=== PATIENT | male | born 1940 | race African-American/Black ===

== ENCOUNTER 2017-04-22 15:12 | Inpatient (IN) | payer MEDICARE, MEDICAID ==
[2017-04-22] MEDS ORDERED: NORMAL SALINE 1000 ML 1,000 ML IV ONE ×2 (15:20→17:56)
[2017-04-22] MEDS ORDERED: NORMAL SALINE 1000 ML 1,000 ML IV PRN (15:20)
[2017-04-22] MEDS ORDERED: ONDANSETRON HCL INJ/PF 4 MG/2 ML SDV IV ONE (15:21)
--- NOTE | 2017-04-22 15:27 | ER Document Report ---
ED General - General Stated Complaint: BLOOD PRESSURE PROBLEMS Time Seen by Provider: 04/22/17 15:18 - HPI Patient complains to provider of: Nausea vomiting weakness dizziness Notes: Patient coming in today from a long-term after having nausea vomiting apparently for 1 week according to the patient epigastric pain feeling better after vomiting. Called to the long-term due to frequent falls and dizziness. Patient was found to have a systolic of 50. Upon evaluation patient is a alert and oriented patient states history of smoking and diabetes denies any other past medical history. Patient denies any drug abuse. Patient denies any pain at this time. - Related Data Allergies/Adverse Reactions: No Known Allergies Allergy (Verified 04/22/17 15:40) Past Medical History - Social History Smoking Status: Current Every Day Smoker Family History: Reviewed & Not Pertinent Review of Systems - Review of Systems Constitutional: No symptoms reported EENT: No symptoms reported Cardiovascular: No symptoms reported Respiratory: No symptoms reported Gastrointestinal: Nausea, Vomiting Genitourinary: No symptoms reported Male Genitourinary: No symptoms reported Musculoskeletal: No symptoms reported Skin: No symptoms reported Hematologic/Lymphatic: No symptoms reported Neurological/Psychological: No symptoms reported Physical Exam - Vital signs Vitals: Pulse Resp BP Pulse Ox 84 16 95/51 L 98 04/22/17 15:20 04/22/17 15:20 04/22/17 15:20 04/22/17 15:20 Interpretation: Hypotensive - General General appearance: Appears well, Alert - HEENT Head: Normocephalic, Atraumatic Eyes: Normal Conjunctiva: Normal Cornea: Normal Pupils: No: PERRL - Right pupil somewhat pinpoint however is reactive to light left pupil is enlarged and irregular patient states history of eye surgery in the past. - Respiratory Respiratory status: No respiratory distress Chest status: Nontender Breath sounds: Normal Chest palpation: Normal - Cardiovascular Rhythm: Regular Heart sounds: Normal auscultation Murmur: No - Abdominal Inspection: Normal Distension: No distension Bowel sounds: Normal Tenderness: Nontender Organomegaly: No organomegaly - Back Back: Normal, Nontender - Extremities General upper extremity: Normal inspection, Nontender, Normal color, Normal ROM , Normal temperature General lower extremity: Normal inspection, Nontender, Normal color, Normal ROM , Normal temperature, Normal weight bearing. No: Arturo's sign - Neurological Neuro grossly intact: Yes Cognition: Normal Orientation: AAOx4 [place] Coma Scale Eye Opening: Spontaneous [place] Coma Scale Verbal: Oriented [place] Coma Scale Motor: Obeys Commands [place] Coma Scale Total: 15 Speech: Normal Motor strength normal: LUE, RUE, LLE, RLE Sensory: Normal - Psychological Associated symptoms: Normal affect, Normal mood - Skin Skin Temperature: Warm Skin Moisture: Dry Skin Color: Normal Course - Re-evaluation Re-evalutation: 04/22/17 15:26 Concern about underlying sepsis we will start workup will give multiple fluid boluses reevaluate afterwards. EKG shows sinus rhythm IL 164 QRS duration of 82 QT QTc corrected [address] segment elevations concerning for STEMI. Patient does have diffuse T-wave inversions throughout his EKG no old EKG for comparison patient currently at this time is chest pain-free. 04/22/17 15:27 04/22/17 23:11 Patient with hyponatremia more likely from dehydration and urinary tract infection. Concern for Sears possible early sepsis. Patient blood pressure doing much better after fluid resuscitation. Patient was admitted to the hospital service for further evaluation. - Vital Signs Vital signs: Temp Pulse Resp BP Pulse Ox 98.2 F 94 16 136/61 H 98 04/22/17 22:00 04/22/17 22:00 04/22/17 22:00 04/22/17 22:00 04/22/17 22:00 - Laboratory Result Diagrams: 04/22/17 15:26 04/22/17 21:40 Laboratory results interpreted by me: 04/22/17 04/22/17 04/22/17 15:26 15:26 15:26 WBC 11.2 H RBC 4.00 L Hgb 10.7 L Hct 32.1 L MCH 26.8 L RDW 18.5 H Lymphocytes % 7.2 L Monocytes % 17.1 H Absolute Neutrophils 8.4 H Absolute Monocytes 1.9 H Sodium 121.4 L Potassium 3.1 L Chloride 86 L BUN 36 H Creatinine 1.47 H Est GFR ( Amer) 57 L Est GFR (Non-Af Amer) 47 L Serum Osmolality 261 L Albumin 3.1 L Urine Glucose (UA) Ur Leukocyte Esterase 04/22/17 16:40 WBC RBC Hgb Hct MCH RDW Lymphocytes % Monocytes % Absolute Neutrophils Absolute Monocytes Sodium Potassium Chloride BUN Creatinine Est GFR ( Amer) Est GFR (Non-Af Amer) Serum Osmolality Albumin Urine Glucose (UA) 50 H Ur Leukocyte Esterase LARGE H Critical Care Note - Critical Care Note Total time excluding time spent on procedures (mins): 35 Comments: Multiple evaluation for hypertension sirs Discharge - Discharge Clinical Impression: SIRS (systemic inflammatory response syndrome) UTI (urinary tract infection) Qualifiers: Urinary tract infection type: acute cystitis Hematuria presence: without hematuria Qualified Code(s): N30.00 - Acute cystitis without hematuria N&V (nausea and vomiting) Qualifiers: Vomiting type: unspecified Vomiting Intractability: non-intractable Qualified Code(s): R11.2 - Nausea with vomiting, unspecified Condition: Good Disposition: ADMITTED INPATIENT Admitting Provider: [facility] Admitted: [facility]
[2017-04-22 15:39] LABS: ABSOLUTE LYMPHOCYTES (AUTO) 0.8 10^3/uL (0.5-4.7); ABSOLUTE MONOCYTES (AUTO) 1.9 10^3/uL (0.1-1.4); ABSOLUTE NEUT (AUTO) 8.4 10^3/uL (1.7-8.2); BASOPHILS % (AUTO) 0.4 % (0-2); EOSINOPHILS % (AUTO) 0.1 % (0-6); HEMATOCRIT 32.1 % (37.9-51.0); HEMOGLOBIN 10.7 g/dL (13.5-17.0); LYMPHOCYTES % (AUTO) 7.2 % (13-45); MEAN CORPUSCULAR HEMOGLOBIN 26.8 pg (27.0-33.4); MEAN CORPUSCULAR HGB CONC 33.5 g/dL (32.0-36.0); MEAN CORPUSCULAR VOLUME 80 fl (80-97); MONOCYTES % (AUTO) 17.1 % (3-13); RED CELL DISTRIBUTION WIDTH 18.5 % (11.5-14.0); SEGMENTED NEUTROPHILS % (AUTO) 75.2 % (42-78); WHITE BLOOD COUNT 11.2 10^3/uL (4.0-10.5)
[2017-04-22 16:01] LABS: ALANINE AMINOTRANSFERASE 35 U/L (21-72); ALBUMIN 3.1 g/dL (3.5-5.0); ALKALINE PHOSPHATASE 89 U/L (38-126); ANION GAP 5 (5-19); ASPARTATE AMINO TRANSFERASE 25 U/L (17-59); BILIRUBIN,DIRECT 0.4 mg/dL (0.0-0.4); BILIRUBIN,TOTAL 0.5 mg/dL (0.2-1.3); BLOOD UREA NITROGEN 36 mg/dL (7-20); CALCIUM 8.6 mg/dL (8.4-10.2); CARBON DIOXIDE 30 mmol/L (22-30); CHLORIDE 86 mmol/L (98-107); CREATININE RESULT 1.47 mg/dL (0.52-1.25); GLUCOSE 96 mg/dL (75-110); POTASSIUM 3.1 mmol/L (3.6-5.0); SODIUM 121.4 mmol/L (137-145); TOTAL PROTEIN 6.5 g/dL (6.3-8.2)
--- NOTE | 2017-04-22 16:35 | RADIOLOGY REPORT (SQ) ---
EXAM DESCRIPTION: CHEST SINGLE VIEW COMPLETED DATE/TIME: 04/22/2017 4:26 pm REASON FOR STUDY: sepsis COMPARISON: 07/20/2009 EXAM PARAMETERS: NUMBER OF VIEWS: One view. TECHNIQUE: Single frontal radiographic view of the chest acquired. RADIATION DOSE: NA LIMITATIONS: None. FINDINGS: LUNGS AND PLEURA: Stable 5 mm right upper lobe calcified granuloma. No acute infiltrates. No pleural effusion. No pneumothorax. MEDIASTINUM AND HILAR STRUCTURES: No masses. Contour normal. HEART AND VASCULAR STRUCTURES: Heart normal in size. Normal vasculature. BONES: No acute findings. HARDWARE: None in the chest. OTHER: No other significant finding. IMPRESSION: No acute changes TECHNICAL DOCUMENTATION: JOB ID: [id number]
[2017-04-22 17:09] LABS: VENOUS BLOOD BASE EXCESS -2.3 mmol/L; VENOUS BLOOD HCO3 23.6 mmol/L (20-32); VENOUS BLOOD PCO2 44.9 mmHg (35-63); VENOUS BLOOD PH 7.34 (7.30-7.42)
[2017-04-22 17:10] LABS: PROTHROMBIN TIME 13.8 SEC (11.4-15.4)
[2017-04-22 17:29] LABS: APPEARANCE,URINE SLIGHTLY-CLOUDY; BILIRUBIN,URINE NEGATIVE (NEGATIVE); GLUCOSE, URINE 50 mg/dL (NEGATIVE); KETONES,URINE NEGATIVE (NEGATIVE); LEUKOCYTE ESTERASE,URINE LARGE (NEGATIVE); NITRITE,URINE NEGATIVE (NEGATIVE); PROTEIN,URINE NEGATIVE (NEGATIVE); URINE SPECIFIC GRAVITY 1.008; UROBILINOGEN,URINE NEGATIVE mg/dL (<2.0)
[2017-04-22] MEDS ORDERED: CEFTRIAXONE 1 GM/D5W RTU 1 GM/50 ML RTUPB IV ONE (17:44)
[2017-04-22] MEDS ORDERED: ONDANSETRON HCL INJ/PF 4 MG/2 ML SDV IV PRN (17:52)
[2017-04-22] MEDS ORDERED: ACETAMINOPHEN 325 MG TABLET PO PRN (17:52)
[2017-04-22] MEDS ORDERED: IPRATROPIUM/ALBUTEROL 0.5-2.5 MG/3 ML AMPUL NEB PRN (17:52)
[2017-04-22] MEDS ORDERED: NORMAL SALINE 1000 ML 2,000 ML IV ONE (17:56)
[2017-04-22] MEDS ORDERED: POTASSIUM CHLORIDE 10 MEQ TABLET.SA PO ONE (17:57)
[2017-04-22] MEDS ORDERED: GLUCAGON,HUMAN RECOMB 1 MG INJ IM PRN (18:18)
[2017-04-22] MEDS ORDERED: DEXTROSE 40% GEL 15 GM TUBE PO PRN ×2 (18:18)
[2017-04-22] MEDS ORDERED: DEXTROSE 50%-WATER 25 GM/50 ML DISP.SYRIN IV PRN ×2 (18:18)
[2017-04-22] MEDS ORDERED: ZINC OXIDE 20% OINTMENT 28.35 GM TP PRN (18:19)
--- NOTE | 2017-04-22 18:38 | PDOC H&P ---
History of Present Illness Admission Date/PCP: 04/22/17 Skyla Reyes History of Present Illness: TATIANNA FARLEY is a 76 year old male with a past medical history significant for BPH, hypertension, hyperlipidemia, diabetes mellitus, COPD, and possibly schizophrenia who presents to the hospital from a skilled nursing. At the time I see patient, he is unaccompanied and can tell me very little about why he is there other than that he feels poorly. He apparently had nausea and vomiting for 1 week prior to admission and when EMS arrived patient had a systolic blood pressure in the 50s. Patient currently has a systolic blood pressure of greater than 110. He is awake alert and conversational and oriented to person place and situation. However he is unable to tell me very little about himself or his medical history or conditions. Much of this is inferred from the ER note and from his medication list. Medications are currently being reconciled but include finasteride, alfuzosin, benztropine, hydrochlorothiazide, losartan, Zofran, atorvastatin, Levemir, NovoLog, Spiriva, timop, and thiothixene. Past Medical History Past Medical History: BPH, hypertension, hyperlipidemia, diabetes mellitus, COPD, and possibly schizophrenia Past Surgical History Past Surgical History: Reports: Other - eye surgery Social History Smoking Status: Current Every Day Smoker Frequency of Alcohol Use: None Hx Recreational Drug Use: No - Advance Directive Resuscitation Status: Full Code Surrogate healthcare decision maker:: sister, unable to name Family History Family History: Other - unable to obtain Parental Family History Reviewed: No - unable due to condition Children Family History Reviewed: NA Sibling(s) Family History Reviewed.: No Medication/Allergy Allergies/Adverse Reactions: No Known Allergies Allergy (Verified 04/22/17 15:40) Review of Systems ROS unobtainable: Due to mental status Constitutional: PRESENT: fatigue, weakness. ABSENT: chills, fever(s), headache( s), weight gain, weight loss Eyes: ABSENT: visual disturbances Ears: ABSENT: hearing changes Cardiovascular: ABSENT: chest pain, dyspnea on exertion, edema, orthropnea, palpitations Respiratory: ABSENT: cough, hemoptysis Gastrointestinal: PRESENT: diarrhea, nausea, vomiting. ABSENT: abdominal pain, constipation, hematemesis, hematochezia, melena Genitourinary: PRESENT: difficulty urinating. ABSENT: dysuria, hematuria Musculoskeletal: ABSENT: joint swelling Integumentary: ABSENT: rash, wounds Neurological: PRESENT: frequent falls. ABSENT: abnormal gait, abnormal speech, confusion, dizziness, focal weakness, syncope Psychiatric: ABSENT: anxiety, depression, homidical ideation, suicidal ideation Endocrine: ABSENT: cold intolerance, heat intolerance, polydipsia, polyuria Hematologic/Lymphatic: ABSENT: easy bleeding, easy bruising Physical Exam Vital Signs: Temp Pulse Resp BP Pulse Ox 97.6 F 84 24 H 95/51 L 98 04/22/17 15:40 04/22/17 15:20 04/22/17 15:20 04/22/17 15:20 04/22/17 15:20 Intake & Output 04/21/17 04/22/17 04/23/17 06:59 06:59 06:59 Weight 63.503 kg General appearance: PRESENT: mild distress - ill appearing, well-developed, well -nourished Head exam: PRESENT: atraumatic, normocephalic Eye exam: PRESENT: conjunctiva pink, EOMI. ABSENT: PERRLA - reports prior eye surgery, scleral icterus Ear exam: PRESENT: normal external ear exam Mouth exam: PRESENT: dry mucosa, tongue midline Teeth exam: PRESENT: edentulous Neck exam: ABSENT: JVD, lymphadenopathy, thyromegaly, tracheal deviation Respiratory exam: PRESENT: prolonged expiratory phas, symmetrical, unlabored. ABSENT: accessory muscle use, crackles, rales, rhonchi, stridor, tachypnea, wheezes Cardiovascular exam: PRESENT: RRR, +S1, +S2. ABSENT: diastolic murmur, gallop, rubs, systolic murmur Pulses: PRESENT: +1 pedal pulses bilateral Vascular exam: PRESENT: normal capillary refill GI/Abdominal exam: PRESENT: normal bowel sounds, soft. ABSENT: distended, firm , guarding, mass, Duncan's sign, organolmegaly, rebound, rigid, tenderness Rectal exam: PRESENT: deferred Extremities exam: PRESENT: full ROM. ABSENT: calf tenderness, clubbing, pedal edema Neurological exam: PRESENT: alert, awake, oriented to person, oriented to place , oriented to situation, CN II-XII grossly intact. ABSENT: oriented to time, motor sensory deficit, normal gait Psychiatric exam: PRESENT: appropriate affect, normal mood, other - suspect baseline cognitive dysfunction. ABSENT: homicidal ideation, suicidal ideation Skin exam: PRESENT: dry, intact, rash - bilateral leg venous stasis, hyperpigmentation, warm. ABSENT: cyanosis Results Laboratory Results: 04/22/17 15:26 04/22/17 15:26 04/22/17 04/22/17 04/22/17 15:26 15:26 15:26 WBC 11.2 H RBC 4.00 L Hgb 10.7 L Hct 32.1 L MCV 80 MCH 26.8 L MCHC 33.5 RDW 18.5 H Plt Count 186 Seg Neutrophils % 75.2 Lymphocytes % 7.2 L Monocytes % 17.1 H Eosinophils % 0.1 Basophils % 0.4 Absolute Neutrophils 8.4 H Absolute Lymphocytes 0.8 Absolute Monocytes 1.9 H Absolute Eosinophils 0.0 Absolute Basophils 0.0 VBG pH VBG pCO2 VBG HCO3 VBG Base Excess Sodium 121.4 L Potassium 3.1 L Chloride 86 L Carbon Dioxide 30 Anion Gap 5 BUN 36 H Creatinine 1.47 H Est GFR ( Amer) 57 L Est GFR (Non-Af Amer) 47 L Glucose 96 Lactic Acid Calcium 8.6 Magnesium 2.0 Total Bilirubin 0.5 AST 25 ALT 35 Alkaline Phosphatase 89 Total Protein 6.5 Albumin 3.1 L Lipase 23.3 Urine Color Urine Appearance Urine pH Ur Specific [place] Urine Protein Urine Glucose (UA) Urine Ketones Urine Blood Urine Nitrite Ur Leukocyte Esterase Urine WBC (Auto) Urine RBC (Auto) 04/22/17 04/22/17 04/22/17 16:15 16:40 16:55 WBC RBC Hgb Hct MCV MCH MCHC RDW Plt Count Seg Neutrophils % Lymphocytes % Monocytes % Eosinophils % Basophils % Absolute Neutrophils Absolute Lymphocytes Absolute Monocytes Absolute Eosinophils Absolute Basophils VBG pH 7.34 VBG pCO2 44.9 VBG HCO3 23.6 VBG Base Excess -2.3 Sodium Potassium Chloride Carbon Dioxide Anion Gap BUN Creatinine Est GFR ( Amer) Est GFR (Non-Af Amer) Glucose Lactic Acid 1.2 Calcium Magnesium Total Bilirubin AST ALT Alkaline Phosphatase Total Protein Albumin Lipase Urine Color YELLOW Urine Appearance SLIGHTLY-CLOUDY Urine pH 6.0 Ur Specific [place] 1.008 Urine Protein NEGATIVE Urine Glucose (UA) 50 H Urine Ketones NEGATIVE Urine Blood NEGATIVE Urine Nitrite NEGATIVE Ur Leukocyte Esterase LARGE H Urine WBC (Auto) 83 Urine RBC (Auto) 1 04/22/17 15:26 Troponin I 0.027 Impressions: Chest X-Ray 04/22/17 15:20 IMPRESSION: No acute changes Assessment & Plan - Diagnosis (1) UTI (urinary tract infection) Qualifiers: Urinary tract infection type: acute cystitis Hematuria presence: without hematuria Qualified Code(s): N30.00 - Acute cystitis without hematuria Is this a current diagnosis for this admission?: Yes Plan: Patient on Rocephin pending culture. (2) Sepsis Qualifiers: Sepsis type: sepsis due to unspecified organism Qualified Code(s): A41.9 - Sepsis, unspecified organism Is this a current diagnosis for this admission?: Yes Plan: Likely gram negative due to UTI Patient on Rocephin Cultures collected (3) COPD (chronic obstructive pulmonary disease) Qualifiers: COPD type: unspecified COPD Qualified Code(s): J44.9 - Chronic obstructive pulmonary disease, unspecified Is this a current diagnosis for this admission?: Yes Plan: Place on prn duonebs spiriva encourage cessation of smoking (4) IDDM (insulin dependent diabetes mellitus) Is this a current diagnosis for this admission?: Yes Plan: Check HgbA1c Place on sliding scale and carb controlled diet (5) Hypertension Qualifiers: Hypertension type: unspecified Qualified Code(s): I10 - Essential (primary ) hypertension Is this a current diagnosis for this admission?: Yes Plan: Patient is normally hypertensive and is currently hypotensive. Hold antihypertensives (6) Hyponatremia Is this a current diagnosis for this admission?: Yes Plan: Likely secondary to intravascular volume depletion. Send urine and serum osmolality. Send spot urine sodium. This condition was likely exacerbated by patient's use of Hydrochlorothiazide. Will stop this. (7) Hypokalemia Is this a current diagnosis for this admission?: Yes Plan: Magnesium is normal. Will replete him IV. Continue to monitor on telemetry with concern for arrhythmia. (8) Tobacco abuse Is this a current diagnosis for this admission?: Yes Plan: Encourage cessation offer nicotine replacement (9) BPH (benign prostatic hyperplasia) Qualifiers: Lower urinary tract symptom presence: unspecified whether lower urinary tract symptoms present Qualified Code(s): N40.0 - Benign prostatic hyperplasia without lower urinary tract symptoms Is this a current diagnosis for this admission?: Yes Plan: Continue finasteride and alfuzosin as tolerated (10) N&V (nausea and vomiting) Qualifiers: Vomiting type: unspecified Vomiting Intractability: non-intractable Qualified Code(s): R11.2 - Nausea with vomiting, unspecified Is this a current diagnosis for this admission?: Yes Plan: Concern with history of diabetes mellitus for gastroparesis. Likely however secondary to underlying UTI. Place on Zofran. Consider CAT scan if patient is not appreciably improved or if he does decline. (11) Anemia Qualifiers: Anemia type: unspecified type Qualified Code(s): D64.9 - Anemia, unspecified Is this a current diagnosis for this admission?: Yes Plan: Recommend outpatient evaluation for this including colonoscopy. - Time Time Spent: 30 to 50 Minutes Medications reviewed and adjusted accordingly: Yes Anticipated discharge: Other - Inpatient Certification Based on my medical assessment, after consideration of the patient's comorbidities, presenting symptoms, or acuity I expect that the services needed warrant INPATIENT care.: Yes I certify that my determination is in accordance with my understanding of Medicare's requirements for reasonable and necessary INPATIENT services [42 CFR 412.3e].: Yes Medical Necessity: Need For IV Fluids, Need For Continuous Telemetry Monitoring , Need for IV Antibiotics, Risk of Complication if Not Cared For in Hospital Post Hospital Care: D/C [employer] Documentation
[2017-04-22 19:55] LABS: CREATINE KINASE MB 1.97 ng/mL (<4.55); TROPONIN I 0.027 ng/mL
[2017-04-22 22:04] LABS: BLOOD UREA NITROGEN 29 mg/dL (7-20); CALCIUM 8.5 mg/dL (8.4-10.2); CARBON DIOXIDE 23 mmol/L (22-30); CHLORIDE 91 mmol/L (98-107); CREATININE RESULT 1.09 mg/dL (0.52-1.25); GLUCOSE 219 mg/dL (75-110); POTASSIUM 3.9 mmol/L (3.6-5.0)
[2017-04-22 22:11] LABS: ANION GAP 6 (5-19)
[2017-04-22] MEDS ORDERED: SODIUM BICARBONATE 650 MG TABLET PO ONE (22:25)
[2017-04-22] MEDS: DOCUSATE SODIUM 100 MG CAPSULE PO SCH (23:08)
[2017-04-23] MEDS ORDERED: INSULIN DETEMIR 100 UNIT/ML 3 ML PEN SUBCUT ONE (00:15)
[2017-04-23] MEDS: INSULIN DETEMIR 100 UNIT/ML 3 ML PEN SUBCUT SCH ×2 (00:39→22:01)
[2017-04-23] MEDS: INSULIN LISPRO 100 UNIT/ML 3 ML VIAL SUBCUT PRN ×4 (00:39→22:01)
[2017-04-23 01:25] LABS: CREATINE KINASE MB 2.28 ng/mL (<4.55); TROPONIN I 0.041 ng/mL
[2017-04-23 07:19] LABS: ABSOLUTE LYMPHOCYTES (AUTO) 0.7 10^3/uL (0.5-4.7); ABSOLUTE MONOCYTES (AUTO) 1.6 10^3/uL (0.1-1.4); ABSOLUTE NEUT (AUTO) 6.9 10^3/uL (1.7-8.2); BASOPHILS % (AUTO) 0.5 % (0-2); EOSINOPHILS % (AUTO) 0.2 % (0-6); HEMATOCRIT 31.3 % (37.9-51.0); HEMOGLOBIN 10.4 g/dL (13.5-17.0); HGB HCT DIFFERENCE -0.1; LYMPHOCYTES % (AUTO) 7.4 % (13-45); MEAN CORPUSCULAR HEMOGLOBIN 26.7 pg (27.0-33.4); MEAN CORPUSCULAR HGB CONC 33.2 g/dL (32.0-36.0); MEAN CORPUSCULAR VOLUME 81 fl (80-97); MONOCYTES % (AUTO) 17.6 % (3-13); RED BLOOD COUNT 3.88 10^6/uL (4.35-5.55); RED CELL DISTRIBUTION WIDTH 18.9 % (11.5-14.0); SEGMENTED NEUTROPHILS % (AUTO) 74.3 % (42-78); WHITE BLOOD COUNT 9.2 10^3/uL (4.0-10.5)
--- NOTE | 2017-04-23 07:24 | EKG REPORT ---
SEVERITY:- ABNORMAL ECG - SINUS RHYTHM SERGIO, CONSIDER BIATRIAL ABNORMALITIES PROBABLE LVH WITH SECONDARY REPOL ABNRM BORDERLINE PROLONGED QT INTERVAL : Confirmed by: Troy Novak MD 23-Apr-2017 07:23:34
[2017-04-23] MEDS ORDERED: FUROSEMIDE INJ/PF 20 MG/2 ML SDV IV ONE (07:25)
[2017-04-23 07:34] LABS: ANION GAP 6 (5-19); BLOOD UREA NITROGEN 21 mg/dL (7-20); CALCIUM 8.6 mg/dL (8.4-10.2); CARBON DIOXIDE 24 mmol/L (22-30); CHLORIDE 95 mmol/L (98-107); CREATINE KINASE 141 U/L (55-170); CREATININE RESULT 1.03 mg/dL (0.52-1.25); GLUCOSE 83 mg/dL (75-110); MAGNESIUM 1.9 mg/dL (1.6-2.3); POTASSIUM 3.6 mmol/L (3.6-5.0); SODIUM 125.4 mmol/L (137-145)
[2017-04-23 07:43] LABS: CREATINE KINASE MB 1.92 ng/mL (<4.55); TROPONIN I 0.045 ng/mL
[2017-04-23] MEDS ORDERED: SODIUM CHLORIDE 1 GM TABLET PO SCH (10:00)
[2017-04-23] MEDS ORDERED: CEFTRIAXONE 1 GM/D5W RTU 1 GM/50 ML RTUPB IV SCH (10:00)
[2017-04-23] MEDS: ENOXAPARIN SODIUM INJ 40 MG/0.4 ML DISP.SYRIN SUBCUT SCH (12:08)
[2017-04-23] MEDS: DOCUSATE SODIUM 100 MG CAPSULE PO SCH ×2 (12:08→17:23)
[2017-04-23] MEDS: NICOTINE 21 MG/24 HR PATCH.TD24 TD PRN (12:47)
--- NOTE | 2017-04-23 13:32 | PDOC PROGRESS REPORT ---
Subjective Progress Note for:: 04/23/17 Subjective:: Patient examined with RN and Aide at bedside. Patient reports that he is feeling better today. No new complaints. Tmax in the last 24 hours 99.9. Patient denies chest pain, shortness of breath, abdominal pain, nausea, vomiting , chills, diarrhea, constipation, headache, new onset weakness. Physical Exam Vital Signs: Temp Pulse Resp BP Pulse Ox 99.9 F 93 16 129/58 H 95 04/23/17 04:06 04/23/17 04:06 04/23/17 04:06 04/23/17 04:06 04/23/17 04:06 Intake & Output 04/22/17 04/23/17 04/24/17 06:59 06:59 06:59 Intake Total 1000 Output Total 200 Balance 800 Weight 61.5 kg Exam: General: Awake alert and oriented x3, no acute respiratory distress HEENT: AT/NC, anisocoria-chronic, left eye irregular pupil, EOMI, oropharynx is moist, pink, no scleral icterus, no conjunctival injection Neck: No JVD, trachea midline Chest: Prolonged expiratory phase, clear to auscultation bilaterally, no wheezes , rhonchi, or rales CV: Regular rate and rhythm, normal S1 and S2, no murmur, rub, or gallop Abdomen: Soft, nontender to palpation, nondistended, active bowel sounds; no rebound, rigidity, or guarding : Normal male external genitalia, circumcised Extremities: No cyanosis or edema, +clubbing Neuro: Cranial nerves II through XII are grossly intact without focal deficits; awake alert and oriented x3 Psych: flat mood and affect, rhythmic tongue movements, rhythmic kicking when turned on side Skin: flat healed patches on medial lower extremities, gastrocnemius healed wound on left leg Results Laboratory Results: 04/23/17 07:00 04/22/17 04/23/17 21:40 07:00 WBC 9.2 RBC 3.88 L Hgb 10.4 L Hct 31.3 L MCV 81 MCH 26.7 L MCHC 33.2 RDW 18.9 H Plt Count 205 Seg Neutrophils % 74.3 Lymphocytes % 7.4 L Monocytes % 17.6 H Eosinophils % 0.2 Basophils % 0.5 Absolute Neutrophils 6.9 Absolute Lymphocytes 0.7 Absolute Monocytes 1.6 H Absolute Eosinophils 0.0 Absolute Basophils 0.0 Sodium 120.0 L* Potassium 3.9 Chloride 91 L Carbon Dioxide 23 Anion Gap 6 BUN 29 H Creatinine 1.09 Est GFR ( Amer) > 60 Est GFR (Non-Af Amer) > 60 Glucose 219 H Calcium 8.5 04/22/17 04/22/17 04/23/17 19:02 19:02 00:55 Creatine Kinase 79 138 CK-MB (CK-2) 1.97 Troponin I 0.027 04/23/17 00:55 Creatine Kinase CK-MB (CK-2) 2.28 Troponin I 0.041 Impressions: Chest X-Ray 04/22/17 15:20 IMPRESSION: No acute changes Assessment & Plan - Diagnosis (1) UTI (urinary tract infection) Qualifiers: Urinary tract infection type: acute cystitis Hematuria presence: without hematuria Qualified Code(s): N30.00 - Acute cystitis without hematuria Is this a current diagnosis for this admission?: Yes Plan: Growing gram negative rods Patient on Rocephin pending culture. (2) Sepsis Qualifiers: Sepsis type: sepsis due to unspecified organism Qualified Code(s): A41.9 - Sepsis, unspecified organism Is this a current diagnosis for this admission?: Yes Plan: Gram negative due to UTI Patient on Rocephin Cultures collected (3) COPD (chronic obstructive pulmonary disease) Qualifiers: COPD type: unspecified COPD Qualified Code(s): J44.9 - Chronic obstructive pulmonary disease, unspecified Is this a current diagnosis for this admission?: Yes Plan: Place on prn duonebs spiriva encourage cessation of smoking (4) IDDM (insulin dependent diabetes mellitus) Is this a current diagnosis for this admission?: Yes Plan: Check HgbA1c Place on sliding scale and carb controlled diet 04/23/17 04/23/17 07:00 12:40 Glucose 83 POC Glucose 198 H (5) Hypertension Qualifiers: Hypertension type: unspecified Qualified Code(s): I10 - Essential (primary ) hypertension Is this a current diagnosis for this admission?: Yes Plan: Patient is normally hypertensive and is currently hypotensive. Hold antihypertensives until patient sepsis improved (6) Hyponatremia Is this a current diagnosis for this admission?: Yes Plan: Hypoosmolar, hyponatremia is multifactorial secondary to intravascular volume depletion worsened by HCTZ and possible renal losses. Consider repeat urine sodium if no improvement in Na. Continue NS @100mL/hr and repeat patient sodium serially. 04/22/17 04/22/17 04/22/17 15:26 15:26 16:40 Sodium 121.4 L Serum Osmolality 261 L Ur Specific [place] 1.008 Urine Osmolality Urine Sodium 04/22/17 04/22/17 04/23/17 16:40 16:40 07:00 Sodium 125.4 L Serum Osmolality Ur Specific [place] Urine Osmolality 332 Urine Sodium 62 (7) Hypokalemia Is this a current diagnosis for this admission?: Yes Plan: Improved. Continue to monitor on telemetry with concern for arrhythmia. (8) Tobacco abuse Is this a current diagnosis for this admission?: Yes Plan: Encourage cessation offer nicotine replacement (9) BPH (benign prostatic hyperplasia) Qualifiers: Lower urinary tract symptom presence: unspecified whether lower urinary tract symptoms present Qualified Code(s): N40.0 - Benign prostatic hyperplasia without lower urinary tract symptoms Is this a current diagnosis for this admission?: Yes Plan: Continue finasteride and alfuzosin as tolerated (10) N&V (nausea and vomiting) Qualifiers: Vomiting type: unspecified Vomiting Intractability: non-intractable Qualified Code(s): R11.2 - Nausea with vomiting, unspecified Is this a current diagnosis for this admission?: Yes Plan: Improved. Likely 2/2 to underlying sepsis, concern for symptomatic hyponatremia. (11) Anemia Qualifiers: Anemia type: unspecified type Qualified Code(s): D64.9 - Anemia, unspecified Is this a current diagnosis for this admission?: Yes Plan: Recommend outpatient evaluation for this including colonoscopy. - Time Time Spent with patient: 25-34 minutes Medications reviewed and adjusted accordingly: Yes
[2017-04-23] MEDS: NORMAL SALINE 1000 ML 1,000 ML IV PRN ×2 (14:39→17:21)
[2017-04-23 15:04] LABS: BLOOD UREA NITROGEN 18 mg/dL (7-20); CALCIUM 8.5 mg/dL (8.4-10.2); CHLORIDE 91 mmol/L (98-107); CREATININE RESULT 1.01 mg/dL (0.52-1.25); GLUCOSE 197 mg/dL (75-110); POTASSIUM 3.7 mmol/L (3.6-5.0)
[2017-04-23 15:05] LABS: ANION GAP 6 (5-19); CARBON DIOXIDE 25 mmol/L (22-30); SODIUM 121.7 mmol/L (137-145)
--- NOTE | 2017-04-23 17:09 | EKG REPORT ---
SEVERITY:- ABNORMAL ECG - SINUS RHYTHM PROBABLE LVH WITH SECONDARY REPOL ABNRM ABNORMAL T, PROBABLE ISCHEMIA, ANT-LAT LEADS : Confirmed by: Troy Novak MD 23-Apr-2017 17:08:26
[2017-04-24 04:20] LABS: ABSOLUTE LYMPHOCYTES (AUTO) 1.1 10^3/uL (0.5-4.7); ABSOLUTE MONOCYTES (AUTO) 1.6 10^3/uL (0.1-1.4); ABSOLUTE NEUT (AUTO) 7.8 10^3/uL (1.7-8.2); BASOPHILS % (AUTO) 0.3 % (0-2); EOSINOPHILS % (AUTO) 0.3 % (0-6); HEMATOCRIT 29.5 % (37.9-51.0); HEMOGLOBIN 9.9 g/dL (13.5-17.0); HGB HCT DIFFERENCE 0.2; LYMPHOCYTES % (AUTO) 10.3 % (13-45); MEAN CORPUSCULAR HEMOGLOBIN 26.9 pg (27.0-33.4); MEAN CORPUSCULAR HGB CONC 33.6 g/dL (32.0-36.0); MEAN CORPUSCULAR VOLUME 80 fl (80-97); MONOCYTES % (AUTO) 15.6 % (3-13); RED BLOOD COUNT 3.69 10^6/uL (4.35-5.55); RED CELL DISTRIBUTION WIDTH 18.6 % (11.5-14.0); SEGMENTED NEUTROPHILS % (AUTO) 73.5 % (42-78); WHITE BLOOD COUNT 10.5 10^3/uL (4.0-10.5)
[2017-04-24 04:36] LABS: BLOOD UREA NITROGEN 13 mg/dL (7-20); CALCIUM 8.5 mg/dL (8.4-10.2); CARBON DIOXIDE 25 mmol/L (22-30); CHLORIDE 100 mmol/L (98-107); CREATININE RESULT 0.89 mg/dL (0.52-1.25); GLUCOSE 54 mg/dL (75-110); POTASSIUM 3.5 mmol/L (3.6-5.0)
[2017-04-24 04:46] LABS: SODIUM 128.5 mmol/L (137-145)
[2017-04-24 04:49] LABS: ANION GAP 4 (5-19)
[2017-04-24] MEDS ORDERED: TRAMADOL HCL 50 MG TABLET PO PRN (10:03)
[2017-04-24] MEDS: ENOXAPARIN SODIUM INJ 40 MG/0.4 ML DISP.SYRIN SUBCUT SCH (10:05)
[2017-04-24] MEDS: DOCUSATE SODIUM 100 MG CAPSULE PO SCH ×2 (10:06→17:58)
[2017-04-24] MEDS ORDERED: ONDANSETRON HCL INJ/PF 4 MG/2 ML SDV IV PRN (10:30)
[2017-04-24] MEDS ORDERED: CIPROFLOXACIN HCL 500 MG TABLET PO ONE (11:15)
[2017-04-24] MEDS ORDERED: POTASSIUM CHLORIDE 10 MEQ TABLET.SA PO ONE (11:15)
--- NOTE | 2017-04-24 13:01 | PDOC PROGRESS REPORT ---
Subjective Progress Note for:: 04/24/17 Subjective:: Patient examined with sister at bedside. Patient reports that he is feeling better today. No new complaints. Tmax in the last 24 hours 100.0. Patient denies chest pain, shortness of breath, abdominal pain, nausea, vomiting , chills, diarrhea, constipation, headache, new onset weakness. Physical Exam Vital Signs: Temp Pulse Resp BP Pulse Ox 98.3 F 78 14 139/52 H 100 04/24/17 07:49 04/24/17 08:00 04/24/17 08:00 04/24/17 07:49 04/24/17 08:00 Intake & Output 04/23/17 04/24/17 04/25/17 06:59 06:59 06:59 Intake Total 1000 4979 Output Total 200 Balance 800 4979 Weight 61.5 kg 62.6 kg Exam: General: Awake alert and oriented x3, no acute respiratory distress HEENT: AT/NC, anisocoria-chronic, left eye irregular pupil, EOMI, oropharynx is moist, pink, no scleral icterus, no conjunctival injection Neck: No JVD, trachea midline Chest: Prolonged expiratory phase, clear to auscultation bilaterally, no wheezes , rhonchi, or rales CV: Regular rate and rhythm, normal S1 and S2, no murmur, rub, or gallop Abdomen: Soft, nontender to palpation, nondistended, active bowel sounds; no rebound, rigidity, or guarding : Normal male external genitalia, circumcised Extremities: No cyanosis or edema, +clubbing Neuro: Cranial nerves II through XII are grossly intact without focal deficits; awake alert and oriented x3 Psych: flat affect, normal mood, rhythmic tongue movements, rhythmic kicking Skin: flat healed patches on medial lower extremities, gastrocnemius healed wound on left leg Results Laboratory Results: 04/24/17 04:00 04/24/17 04:00 04/23/17 04/24/17 04/24/17 14:27 04:00 04:00 WBC 10.5 RBC 3.69 L Hgb 9.9 L Hct 29.5 L MCV 80 MCH 26.9 L MCHC 33.6 RDW 18.6 H Plt Count 190 Seg Neutrophils % 73.5 Lymphocytes % 10.3 L Monocytes % 15.6 H Eosinophils % 0.3 Basophils % 0.3 Absolute Neutrophils 7.8 Absolute Lymphocytes 1.1 Absolute Monocytes 1.6 H Absolute Eosinophils 0.0 Absolute Basophils 0.0 Sodium 121.7 L 128.5 L Potassium 3.7 3.5 L Chloride 91 L 100 Carbon Dioxide 25 25 Anion Gap 6 4 L BUN 18 13 Creatinine 1.01 0.89 Est GFR ( Amer) > 60 > 60 Est GFR (Non-Af Amer) > 60 > 60 Glucose 197 H 54 L Calcium 8.5 8.5 04/22/17 04/22/17 04/23/17 19:02 19:02 00:55 Creatine Kinase 79 138 CK-MB (CK-2) 1.97 Troponin I 0.027 04/23/17 04/23/17 04/23/17 00:55 07:00 07:00 Creatine Kinase 141 CK-MB (CK-2) 2.28 1.92 Troponin I 0.041 0.045 04/23/17 16:10 Creatine Kinase CK-MB (CK-2) Troponin I 0.031 Impressions: Chest X-Ray 04/22/17 15:20 IMPRESSION: No acute changes Assessment & Plan - Diagnosis (1) UTI (urinary tract infection) Qualifiers: Urinary tract infection type: acute cystitis Hematuria presence: without hematuria Qualified Code(s): N30.00 - Acute cystitis without hematuria Is this a current diagnosis for this admission?: Yes Plan: Growing E. coli sensitive to Cipro transition to oral CIPRO (2) Sepsis Qualifiers: Sepsis type: sepsis due to unspecified organism Qualified Code(s): A41.9 - Sepsis, unspecified organism Is this a current diagnosis for this admission?: Yes Plan: Secondary to E. coli UTI (3) COPD (chronic obstructive pulmonary disease) Qualifiers: COPD type: unspecified COPD Qualified Code(s): J44.9 - Chronic obstructive pulmonary disease, unspecified Is this a current diagnosis for this admission?: Yes Plan: Place on prn duonebs spiriva encourage cessation of smoking (4) IDDM (insulin dependent diabetes mellitus) Is this a current diagnosis for this admission?: Yes Plan: HgbA1c 7.6 Patient had episode of hypoglycemia this morning. Stop sliding scale insulin and place on regular diet. According to his senior care, patient drinks soda all day long and thus this is the need for his increased level of Levemir there. (5) Hypertension Qualifiers: Hypertension type: unspecified Qualified Code(s): I10 - Essential (primary ) hypertension Is this a current diagnosis for this admission?: Yes Plan: Patient is normally hypertensive and is currently hypotensive. Hold antihypertensives until patient sepsis improved. Will stop patient's hydrochlorothiazide permanently as I feel this resulted in his hyponatremia. (6) Hyponatremia Is this a current diagnosis for this admission?: Yes Plan: Hypoosmolar, hyponatremia is multifactorial secondary to intravascular volume depletion worsened by HCTZ and possible renal losses. Consider repeat urine sodium if no improvement in Na. Stop IV fluids. Stop hydrochlorothiazide. 04/22/17 04/22/17 04/22/17 15:26 15:26 16:40 Sodium 121.4 L Serum Osmolality 261 L Ur Specific [place] 1.008 Urine Osmolality Urine Sodium 04/22/17 04/22/17 04/23/17 16:40 16:40 07:00 Sodium 125.4 L Serum Osmolality Ur Specific [place] Urine Osmolality 332 Urine Sodium 62 (7) Hypokalemia Is this a current diagnosis for this admission?: Yes Plan: Improved. (8) Tobacco abuse Is this a current diagnosis for this admission?: Yes Plan: Encourage cessation offer nicotine replacement (9) BPH (benign prostatic hyperplasia) Qualifiers: Lower urinary tract symptom presence: unspecified whether lower urinary tract symptoms present Qualified Code(s): N40.0 - Benign prostatic hyperplasia without lower urinary tract symptoms Is this a current diagnosis for this admission?: Yes Plan: Continue finasteride and Flomax as tolerated (10) Anemia Qualifiers: Anemia type: unspecified type Qualified Code(s): D64.9 - Anemia, unspecified Is this a current diagnosis for this admission?: Yes Plan: Recommend outpatient evaluation for this including colonoscopy. (11) Tardive dyskinesia Is this a current diagnosis for this admission?: Yes Plan: Start patient on trihexylphenidyl 1mg po daily and recommend increasing up to 5- 15 mg per day in 3-4 divided doses. Consider stopping his current antipsychotic , but will avoid this due to his underlying diagnosis of schizophrenia. 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 Consider stopping his current antipsychotic , but will avoid this due to his underlying diagnosis of schizophrenia. - Time Time Spent with patient: 25-34 minutes Medications reviewed and adjusted accordingly: Yes Anticipated discharge: Other - Assisted-living Within: within 24 hours - Inpatient Certification Based on my medical assessment, after consideration of the patient's comorbidities, presenting symptoms, or acuity I expect that the services needed warrant INPATIENT care.: Yes I certify that my determination is in accordance with my understanding of Medicare's requirements for reasonable and necessary INPATIENT services [42 CFR 412.3e].: Yes Medical Necessity: Risk of Complication if Not Cared For in Hospital Post Hospital Care: D/C Workforce Management Consultant Documentation
[2017-04-24] MEDS ORDERED: TRIHEXYPHENIDYL HCL 2 MG TABLET PO ONE (14:00)
[2017-04-24] MEDS: NICOTINE 21 MG/24 HR PATCH.TD24 TD PRN (14:41)
[2017-04-24] MEDS ORDERED: LATANOPROST 0.005% OPH SOLN 2.5 ML OU SCH (22:00)
[2017-04-24] MEDS ORDERED: ATORVASTATIN CALCIUM 80 MG TABLET PO SCH (22:00)
[2017-04-24] MEDS: TRIHEXYPHENIDYL HCL 2 MG TABLET PO SCH (22:27)
[2017-04-24] MEDS: CIPROFLOXACIN HCL 500 MG TABLET PO SCH (22:27)
[2017-04-24] MEDS: INSULIN DETEMIR 100 UNIT/ML 3 ML PEN SUBCUT SCH (22:28)
[2017-04-25] MEDS ORDERED: ENALAPRILAT DIHYDRATE INJ/PF 1.25 MG/1 ML SDV IV PRN (02:00)
[2017-04-25 04:44] LABS: HEMATOCRIT 31.9 % (37.9-51.0); HEMOGLOBIN 10.6 g/dL (13.5-17.0); HGB HCT DIFFERENCE -0.1; MEAN CORPUSCULAR HGB CONC 33.3 g/dL (32.0-36.0); MEAN CORPUSCULAR VOLUME 81 fl (80-97); RED BLOOD COUNT 3.93 10^6/uL (4.35-5.55); RED CELL DISTRIBUTION WIDTH 18.6 % (11.5-14.0)
[2017-04-25 05:02] LABS: ANION GAP 5 (5-19); BLOOD UREA NITROGEN 9 mg/dL (7-20); CALCIUM 8.7 mg/dL (8.4-10.2); CARBON DIOXIDE 24 mmol/L (22-30); CHLORIDE 98 mmol/L (98-107); CREATININE RESULT 0.67 mg/dL (0.52-1.25); GLUCOSE 208 mg/dL (75-110); POTASSIUM 3.9 mmol/L (3.6-5.0); SODIUM 127.3 mmol/L (137-145)
[2017-04-25 05:42] LABS: BASOPHILS % (MANUAL) 0 % (0-2); EOSINOPHILS % (MANUAL) 2 % (0-6); LYMPHOCYTES % (MANUAL) 14 % (13-45); TOTAL CELLS COUNTED 100
[2017-04-25 05:46] LABS: ANISOCYTOSIS 2+; BURR CELLS 1+; OVALOCYTES SLIGHT; POIKILOCYTOSIS 1+; TARGET CELLS SLIGHT
[2017-04-25] MEDS: CIPROFLOXACIN HCL 500 MG TABLET PO SCH (09:45)
[2017-04-25] MEDS: TRIHEXYPHENIDYL HCL 2 MG TABLET PO SCH (09:46)
[2017-04-25] MEDS: ENOXAPARIN SODIUM INJ 40 MG/0.4 ML DISP.SYRIN SUBCUT SCH (09:49)
[2017-04-25] MEDS ORDERED: BISACODYL 10 MG SUPP.RECT PR ONE (10:00)
[2017-04-25] MEDS ORDERED: BENZTROPINE MESYLATE 1 MG TABLET PO SCH (10:00)
[2017-04-25] MEDS ORDERED: FINASTERIDE 5 MG TABLET PO SCH (10:00)
[2017-04-25] MEDS ORDERED: (PENDING PHARMACY ID) (Alfuzosin Hcl [Alfuzosin Hcl Er] 10 MG) PO SCH (10:00)
[2017-04-25] MEDS ORDERED: LOSARTAN POTASSIUM 50 MG TABLET PO SCH (10:00)
[2017-04-25] MEDS ORDERED: TAMSULOSIN HCL 0.4 MG CAP.SR.24H PO SCH (10:00)
[2017-04-25] MEDS ORDERED: THIOTHIXENE 10 MG PO SCH ×3 (10:00)
--- NOTE | 2017-04-25 10:52 | PDOC DISCHARGE SUMMARY ---
General - Admit/Disc Date/PCP Admission Date/Primary Care Provider: 04/22/17 17:52 ARMINDA VARGAS MD Discharge Date: 04/25/17 - Discharge Diagnosis (1) UTI (urinary tract infection) Is this a current diagnosis for this admission?: Yes (2) Sepsis Is this a current diagnosis for this admission?: Yes (3) COPD (chronic obstructive pulmonary disease) Is this a current diagnosis for this admission?: Yes (4) IDDM (insulin dependent diabetes mellitus) Is this a current diagnosis for this admission?: Yes (5) Hypertension Is this a current diagnosis for this admission?: Yes (6) Hyponatremia Is this a current diagnosis for this admission?: Yes (7) Hypokalemia Is this a current diagnosis for this admission?: Yes (8) Tobacco abuse Is this a current diagnosis for this admission?: Yes (9) BPH (benign prostatic hyperplasia) Is this a current diagnosis for this admission?: Yes (10) Anemia Is this a current diagnosis for this admission?: Yes (11) Tardive dyskinesia Is this a current diagnosis for this admission?: Yes (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 Is this a current diagnosis for this admission?: Yes (13) Schizophrenia Is this a current diagnosis for this admission?: Yes - Additional Information Resuscitation Status: Full Code Discharge Diet: Regular Discharge Activity: Activity As Tolerated, Slowly Increase Activity, Supervised Activity Home Medications: Alfuzosin HCl [Alfuzosin HCl ER] 10 mg PO DAILY 04/23/17 Atorvastatin Calcium [Lipitor 80 mg Tablet] 80 mg PO DAILY 04/23/17 Benztropine Mesylate [Cogentin 1 mg Tablet] 1 mg PO DAILY 04/23/17 Finasteride [Proscar] 5 mg PO DAILY 04/23/17 Insulin Aspart [Novolog Flexpen] 8 unit SQ AC 04/23/17 Insulin Detemir [Levemir Flextouch] 24 unit SQ QHS 04/23/17 Latanoprost [Xalatan 0.005% Oph Soln 2.5 ml] 1 drop OU QHS 04/23/17 Losartan Potassium [Cozaar 100 mg Tablet] 100 mg PO DAILY 04/23/17 Mirabegron [Myrbetriq] 25 mg PO DAILY 04/23/17 Ondansetron [Ondansetron Odt] 4 mg SL Q12HP PRN 04/23/17 Thiothixene 10 mg PO DAILY 04/23/17 Tiotropium [place] [Spiriva Handihaler 18 mcg/dose (30 Dose)] 1 puff IN DAILY Tramadol HCl [Ultram 50 mg Tablet] 50 mg PO Q12HP PRN 04/23/17 Atorvastatin Calcium [Lipitor 80 mg Tablet] 80 mg PO QHS tablet 04/25/17 Ciprofloxacin HCl [Cipro 500 mg Tablet] 500 mg PO Q12 #10 tablet 04/25/17 Docusate Sodium [Colace 100 mg Capsule] 100 mg PO BIDP PRN capsule 04/25/17 Trihexyphenidyl HCl [Artane 2 mg Tablet] 1 mg PO Q12 #30 tablet 04/25/17 Zinc Oxide [Zinc Oxide 20% Ointment 28.35 gm] 1 applic TP TIDP PRN #1 tube 04/25 History of Present Illness History of Present Illness: TATIANNA FARLEY is a 76 year old male with a past medical history significant for BPH, hypertension, hyperlipidemia, diabetes mellitus, COPD, and possibly schizophrenia who presents to the hospital from a residential. At the time I see patient, he is unaccompanied and can tell me very little about why he is there other than that he feels poorly. He apparently had nausea and vomiting for 1 week prior to admission and when EMS arrived patient had a systolic blood pressure in the 50s. Patient currently has a systolic blood pressure of greater than 110. He is awake alert and conversational and oriented to person place and situation. However he is unable to tell me very little about himself or his medical history or conditions. Much of this is inferred from the ER note and from his medication list. Medications are currently being reconciled but include finasteride, alfuzosin, benztropine, hydrochlorothiazide, losartan, Zofran, atorvastatin, Levemir, NovoLog, Spiriva, timop, and thiothixene. Hospital Course Hospital Course: Patient blood pressure and sodium improved with hydration. Patient was found to have E. Coli UTI which was the cause of his sepsis. Patient is noted to have tardive dyskinesia and tardive akathisia. I did attempt to start him on Artane But have not seen much improvement. patient is also noted to have gynecomastia. At this time I have made no changes to his antipsychotic therapy , but recommend that this be reevaluated in the future. Patient's blood sugars were well controlled here in the hospital. Analysis of his hemoglobin A1c revealed fair control at home with hemoglobin A1c of 7.6. Patient is eating and drinking well. Patient is much improved and stable for transfer back to assisted living facility. Upon his return, his hydrochlorothiazide should be stopped. It is recommended that patient stop smoking. Physical Exam Vital Signs: Temp Pulse Resp BP Pulse Ox 98.0 F 70 18 131/62 H 100 04/25/17 07:12 04/25/17 07:12 04/25/17 07:12 04/25/17 07:12 04/25/17 07:12 Intake & Output 04/24/17 04/25/17 04/26/17 06:59 06:59 06:59 Intake Total 4979 2422 Balance 4979 2422 Weight 62.6 kg 64.8 kg Exam: General: Awake alert and oriented x3, no acute respiratory distress HEENT: AT/NC, anisocoria-chronic, left eye irregular pupil, EOMI, oropharynx is moist, pink, no scleral icterus, no conjunctival injection Neck: No JVD, trachea midline Chest: Prolonged expiratory phase, clear to auscultation bilaterally, no wheezes , rhonchi, or rales CV: Regular rate and rhythm, normal S1 and S2, no murmur, rub, or gallop Abdomen: Soft, nontender to palpation, nondistended, active bowel sounds; no rebound, rigidity, or guarding : Normal male external genitalia, circumcised Extremities: No cyanosis or edema, +clubbing Neuro: Cranial nerves II through XII are grossly intact without focal deficits; awake alert and oriented x3 Psych: flat affect, normal mood, rhythmic tongue movements, rhythmic kicking Skin: flat healed patches on medial lower extremities, gastrocnemius healed wound on left leg Results Laboratory Results: 04/25/17 04:17 04/25/17 04:17 04/25/17 04/25/17 04:17 04:17 WBC 9.0 RBC 3.93 L Hgb 10.6 L Hct 31.9 L MCV 81 MCH 27.0 MCHC 33.3 RDW 18.6 H Plt Count 205 Seg Neutrophils % Not Reportable Lymphocytes % Not Reportable Monocytes % Not Reportable Eosinophils % Not Reportable Basophils % Not Reportable Absolute Neutrophils Not Reportable Absolute Lymphocytes Not Reportable Absolute Monocytes Not Reportable Absolute Eosinophils Not Reportable Absolute Basophils Not Reportable Sodium 127.3 L Potassium 3.9 Chloride 98 Carbon Dioxide 24 Anion Gap 5 BUN 9 Creatinine 0.67 Est GFR ( Amer) > 60 Est GFR (Non-Af Amer) > 60 Glucose 208 H Calcium 8.7 04/22/17 04/22/17 04/23/17 19:02 19:02 00:55 Creatine Kinase 79 138 CK-MB (CK-2) 1.97 Troponin I 0.027 04/23/17 04/23/17 04/23/17 00:55 07:00 07:00 Creatine Kinase 141 CK-MB (CK-2) 2.28 1.92 Troponin I 0.041 0.045 04/23/17 16:10 Creatine Kinase CK-MB (CK-2) Troponin I 0.031 Impressions: Chest X-Ray 04/22/17 15:20 IMPRESSION: No acute changes Qualifiers PATEINT BEING DISCHARGED WITH ANY OF THE FOLLOWING DIAGNOSIS?: No Plan Time Spent: Greater than 30 Minutes
--- NOTE | 2017-04-25 10:56 | PDOC TRANSFER SUMMARY ---
General - Admit/Disc Date/PCP Admission Date/Primary Care Provider: 04/22/17 17:52 ARMINDA VARGAS MD Discharge Date: 04/25/17 - Discharge Diagnosis (1) UTI (urinary tract infection) Is this a current diagnosis for this admission?: Yes (2) Sepsis Is this a current diagnosis for this admission?: Yes (3) COPD (chronic obstructive pulmonary disease) Is this a current diagnosis for this admission?: Yes (4) IDDM (insulin dependent diabetes mellitus) Is this a current diagnosis for this admission?: Yes (5) Hypertension Is this a current diagnosis for this admission?: Yes (6) Hyponatremia Is this a current diagnosis for this admission?: Yes (7) Hypokalemia Is this a current diagnosis for this admission?: Yes (8) Tobacco abuse Is this a current diagnosis for this admission?: Yes (9) BPH (benign prostatic hyperplasia) Is this a current diagnosis for this admission?: Yes (10) Anemia Is this a current diagnosis for this admission?: Yes (11) Tardive dyskinesia Is this a current diagnosis for this admission?: Yes (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 Is this a current diagnosis for this admission?: Yes (13) Schizophrenia Is this a current diagnosis for this admission?: Yes - Additional Information Resuscitation Status: Full Code Discharge Diet: Regular Discharge Activity: Activity As Tolerated, Slowly Increase Activity, Supervised Activity Home Medications: Alfuzosin HCl [Alfuzosin HCl ER] 10 mg PO DAILY 04/23/17 Atorvastatin Calcium [Lipitor 80 mg Tablet] 80 mg PO DAILY 04/23/17 Benztropine Mesylate [Cogentin 1 mg Tablet] 1 mg PO DAILY 04/23/17 Finasteride [Proscar] 5 mg PO DAILY 04/23/17 Insulin Aspart [Novolog Flexpen] 8 unit SQ AC 04/23/17 Insulin Detemir [Levemir Flextouch] 24 unit SQ QHS 04/23/17 Latanoprost [Xalatan 0.005% Oph Soln 2.5 ml] 1 drop OU QHS 04/23/17 Losartan Potassium [Cozaar 100 mg Tablet] 100 mg PO DAILY 04/23/17 Mirabegron [Myrbetriq] 25 mg PO DAILY 04/23/17 Ondansetron [Ondansetron Odt] 4 mg SL Q12HP PRN 04/23/17 Thiothixene 10 mg PO DAILY 04/23/17 Tiotropium [place] [Spiriva Handihaler 18 mcg/dose (30 Dose)] 1 puff IN DAILY Tramadol HCl [Ultram 50 mg Tablet] 50 mg PO Q12HP PRN 04/23/17 Atorvastatin Calcium [Lipitor 80 mg Tablet] 80 mg PO QHS tablet 04/25/17 Ciprofloxacin HCl [Cipro 500 mg Tablet] 500 mg PO Q12 #10 tablet 04/25/17 Docusate Sodium [Colace 100 mg Capsule] 100 mg PO BIDP PRN capsule 04/25/17 Trihexyphenidyl HCl [Artane 2 mg Tablet] 1 mg PO Q12 #30 tablet 04/25/17 Zinc Oxide [Zinc Oxide 20% Ointment 28.35 gm] 1 applic TP TIDP PRN #1 tube 04/25 History of Present Illness Admission Date/PCP: 04/22/17 17:52 ARMINDA VARGAS MD History of Present Illness: TATIANNA FARLEY is a 76 year old male with a past medical history significant for BPH, hypertension, hyperlipidemia, diabetes mellitus, COPD, and possibly schizophrenia who presents to the hospital from a alf. At the time I see patient, he is unaccompanied and can tell me very little about why he is there other than that he feels poorly. He apparently had nausea and vomiting for 1 week prior to admission and when EMS arrived patient had a systolic blood pressure in the 50s. Patient currently has a systolic blood pressure of greater than 110. He is awake alert and conversational and oriented to person place and situation. However he is unable to tell me very little about himself or his medical history or conditions. Much of this is inferred from the ER note and from his medication list. Medications are currently being reconciled but include finasteride, alfuzosin, benztropine, hydrochlorothiazide, losartan, Zofran, atorvastatin, Levemir, NovoLog, Spiriva, timop, and thiothixene. Hospital Course Hospital Course: Patient blood pressure and sodium improved with hydration. Patient was found to have E. Coli UTI which was the cause of his sepsis. Patient is noted to have tardive dyskinesia and tardive akathisia. I did attempt to start him on Artane But have not seen much improvement. patient is also noted to have gynecomastia. At this time I have made no changes to his antipsychotic therapy , but recommend that this be reevaluated in the future. Patient's blood sugars were well controlled here in the hospital. Analysis of his hemoglobin A1c revealed fair control at home with hemoglobin A1c of 7.6. Patient is eating and drinking well. Patient is much improved and stable for transfer back to assisted living facility. Upon his return, his hydrochlorothiazide should be stopped. It is recommended that patient stop smoking. It is also recommended that patient undergo an outpatient evaluation for his anemia. This should also include colonoscopy based on his age. I do defer this to his primary care physician. Physical Exam Vital Signs: Temp Pulse Resp BP Pulse Ox 98.0 F 70 18 131/62 H 100 04/25/17 07:12 04/25/17 07:12 04/25/17 07:12 04/25/17 07:12 04/25/17 07:12 Intake & Output 04/24/17 04/25/17 04/26/17 06:59 06:59 06:59 Intake Total 4979 2422 Balance 4979 2422 Weight 62.6 kg 64.8 kg Exam: General: Awake alert and oriented x3, no acute respiratory distress HEENT: AT/NC, anisocoria-chronic, left eye irregular pupil, EOMI, oropharynx is moist, pink, no scleral icterus, no conjunctival injection Neck: No JVD, trachea midline Chest: Prolonged expiratory phase, clear to auscultation bilaterally, no wheezes , rhonchi, or rales CV: Regular rate and rhythm, normal S1 and S2, no murmur, rub, or gallop Abdomen: Soft, nontender to palpation, nondistended, active bowel sounds; no rebound, rigidity, or guarding : Normal male external genitalia, circumcised Extremities: No cyanosis or edema, +clubbing Neuro: Cranial nerves II through XII are grossly intact without focal deficits; awake alert and oriented x3 Psych: flat affect, normal mood, rhythmic tongue movements, rhythmic kicking Skin: flat healed patches on medial lower extremities, gastrocnemius healed wound on left leg Results Laboratory Results: 04/25/17 04:17 04/25/17 04:17 04/25/17 04/25/17 04: 04:17 WBC 9.0 RBC 3.93 L Hgb 10.6 L Hct 31.9 L MCV 81 MCH 27.0 MCHC 33.3 RDW 18.6 H Plt Count 205 Seg Neutrophils % Not Reportable Lymphocytes % Not Reportable Monocytes % Not Reportable Eosinophils % Not Reportable Basophils % Not Reportable Absolute Neutrophils Not Reportable Absolute Lymphocytes Not Reportable Absolute Monocytes Not Reportable Absolute Eosinophils Not Reportable Absolute Basophils Not Reportable Sodium 127.3 L Potassium 3.9 Chloride 98 Carbon Dioxide 24 Anion Gap 5 BUN 9 Creatinine 0.67 Est GFR ( Amer) > 60 Est GFR (Non-Af Amer) > 60 Glucose 208 H Calcium 8.7 04/22/17 04/22/17 04/23/17 19:02 19:02 00:55 Creatine Kinase 79 138 CK-MB (CK-2) 1.97 Troponin I 0.027 04/23/17 04/23/17 04/23/17 00:55 07:00 07:00 Creatine Kinase 141 CK-MB (CK-2) 2.28 1.92 Troponin I 0.041 0.045 04/23/17 16:10 Creatine Kinase CK-MB (CK-2) Troponin I 0.031 Impressions: Chest X-Ray 04/22/17 15:20 IMPRESSION: No acute changes Status: Imported from PACS Transfer Plan - Time Spent with Patient Time spent with patient: Greater than 30 Minutes Qualifiers PATEINT BEING DISCHARGED WITH ANY OF THE FOLLOWING DIAGNOSIS?: No
[2017-04-25 13:50] VITALS: BP 157/80
--- NOTE | 2017-04-25 21:02 | EKG REPORT ---
SEVERITY:- ABNORMAL ECG - SINUS RHYTHM PROBABLE LEFT ATRIAL ABNORMALITY PROBABLE LVH WITH SECONDARY REPOL ABNRM ABNORMAL T, PROBABLE ISCHEMIA, ANT-LAT LEADS : Confirmed by: Pramod Phillips 25-Apr-2017 21:01:59
[2017-04-25] MEDS ORDERED: INSULIN DETEMIR 100 UNIT/ML 3 ML PEN SUBCUT SCH (22:00)
== END 2017-04-25 14:37 | disposition home health service (06) | DRG 872 ==
LOC: ER 15:12 → EH 17:52 → UNDOADMIN 18:34 → EH 18:34 → 3N 21:56
PROVIDERS: ADMIT Family Medicine; ATTEND Family Medicine
DX: A41.9 Sepsis, unspecified organism (principal); N30.00 Acute cystitis without hematuria; B96.20 Unspecified Escherichia coli [E. coli] as the cause of diseases classified elsewhere; E87.1 Hypo-osmolality and hyponatremia; J44.9 Chronic obstructive pulmonary disease, unspecified; E87.6 Hypokalemia; D64.9 Anemia, unspecified; G24.01 Drug induced subacute dyskinesia; G25.71 Drug induced akathisia; E11.9 Type 2 diabetes mellitus without complications; N40.0 Benign prostatic hyperplasia without lower urinary tract symptoms; E78.5 Hyperlipidemia, unspecified; I10 Essential (primary) hypertension; N62 Hypertrophy of breast; F20.9 Schizophrenia, unspecified; Z79.4 Long term (current) use of insulin; Z79.899 Other long term (current) drug therapy; F17.200 Nicotine dependence, unspecified, uncomplicated
CPT/HCPCS: 36415; 51701; 71010; 80048; 80053; 81001; 82550; 82553; 82803; 82962; 83036; 83605; 83690; 83735; 83930; 83935; 84300; 84484; 85025; 85610; 87040; 87086; 87088; 87186; 93005; 93010; 99291; G8978-GP; G8979-GP; J0696; J1650; J1815; J3490; J7030

== ENCOUNTER 2017-08-15 18:28 | Emergency (ER) | payer MEDICARE, MEDICAID ==
[2017-08-15] MEDS ORDERED: NORMAL SALINE 1000 ML 1,000 ML IV ONE (20:02)
--- NOTE | 2017-08-15 20:02 | ER Document Report ---
ED General - General Chief Complaint: Fall Stated Complaint: NAUSEA Time Seen by Provider: 08/15/17 19:59 Notes: Patient is a 76-year-old male with a past medical history of schizophrenia and is residing in a [facility] who presents with multiple complaints. Apparently the patient fell today and struck his low back. He states that he has chronic low back pain but since the fall it has become worse. He describes as a constant, aching, throbbing pain to the lumbar spine. Moving worsens the pain. He has not tried anything for improvement of the pain. He denies any focal weakness, numbness, urinary or bowel incontinence or retention. He also notes that he has been nauseated for the past 3 days but denies any overt vomiting. He notes that he has not had a bowel movement for 3 days. He does report a generalized, intermittent abdominal cramping. No localization of the pain. He denies any history of abdominal surgeries in the past. He has not seen his primary care doctor in regards to his nausea and abdominal cramping. TRAVEL OUTSIDE OF THE [place] IN LAST 30 DAYS: No - Related Data Allergies/Adverse Reactions: No Known Allergies Allergy (Verified 04/22/17 15:40) Past Medical History - General Information source: Patient - Social History Smoking Status: Current Every Day Smoker Chew tobacco use (# tins/day): No Frequency of alcohol use: None Drug Abuse: None Lives with: Other - nursing home Family History: Reviewed & Not Pertinent Patient has suicidal ideation: No Patient has homicidal ideation: No - Past Medical History Cardiac Medical History: Reports: Hx Hypertension Endocrine Medical History: Reports: Hx Diabetes Mellitus Type 2 Renal/ Medical History: Denies: Hx Peritoneal Dialysis Psychiatric Medical History: Reports: Hx Schizophrenia Past Surgical History: Reports: Other - eye surgery Review of Systems - Review of Systems Notes: Constitutional: Negative for fever. HENT: Negative for sore throat. Eyes: Negative for visual changes. Cardiovascular: Negative for chest pain. Respiratory: Negative for shortness of breath. Gastrointestinal: Positive for abdominal pain and nausea Genitourinary: Negative for dysuria. Musculoskeletal: Positive for back pain. Skin: Negative for rash. Neurological: Negative for headaches, weakness or numbness. 10 point ROS negative except as marked above and in HPI. Physical Exam - Vital signs Vitals: Resp 20 08/15/17 20:09 Interpretation: Normal Notes: PHYSICAL EXAMINATION: GENERAL: Well-appearing, well-nourished and in no acute distress. HEAD: Atraumatic, normocephalic. EYES: Pupils equal round and reactive to light, extraocular movements intact, sclera anicteric, conjunctiva are normal. ENT: nares patent, oropharynx clear without exudates. Moist mucous membranes. NECK: Normal range of motion, supple without lymphadenopathy LUNGS: Breath sounds clear to auscultation bilaterally and equal. No wheezes rales or rhonchi. HEART: Regular rate and rhythm without murmurs ABDOMEN: Soft, nontender, normoactive bowel sounds. No guarding, no rebound. No masses appreciated. Back: Diffuse L-spine midline tenderness without step-offs or deformities. EXTREMITIES: Normal range of motion, no pitting or edema. No cyanosis. NEUROLOGICAL: 5 out of 5 strength both distally and proximally bilateral lower extremities. 2+ patellar reflexes bilaterally. No clonus. Sensation grossly intact in the bilateral lower extremities. Patient is able to ambulate without difficulty. PSYCH: Normal mood, normal affect. SKIN: Warm, Dry, normal turgor, no rashes or lesions noted. Course - Re-evaluation Re-evalutation: 08/15/17 20:00 Patient presents with diffuse L-spine pain after a mechanical fall. He does have a history of chronic pain but does have diffuse midline tenderness on palpation. He has no focal neurologic deficits, full strength both distally and proximally the bilateral lower extremities. No bowel or bladder incontinence. Given his age and focal midline tenderness will obtain CT of the L-spine. Patient did not hit his head or neck to indicate need for CT imaging of these areas. He is also complaining of generalized abdominal pain with associated nausea without vomiting for the past 3 days. He denies any prior history of abdominal surgeries in the past. A CT abdomen pelvis will be obtained as part of the L-spine film to evaluate for any acute pathology given the patient's age and duration of symptoms. Also obtain basic laboratories. Primary concerns at this point include possible acute biliary pathology, bowel obstruction given the lack of bowel movement in the past several days, much less likely a mesenteric ischemia or acute appendicitis. 08/15/17 21:44 CT scan shows extensive constipation. Will recommend MiraLAX therapy for home. Remainder of CT of the abdomen pelvis unremarkable. L-spine is clear. A 4 mm nodule was noted at the base of the left lung and have informed the patient of this finding as well as the need for outpatient follow-up. At this time will discharge with return precautions and follow-up recommendations. Verbal discharge instructions given a the bedside and opportunity for questions given. Medication warnings reviewed. Patient is in agreement with this plan and has verbalized understanding of return precautions and the need for primary care follow-up in the next 24-72 hours. - Vital Signs Vital signs: Temp Pulse Resp BP Pulse Ox 13 133/58 H 99 08/15/17 21:48 08/15/17 21:48 08/15/17 21:48 - Laboratory Result Diagrams: 08/15/17 20:01 08/15/17 20:01 Laboratory results interpreted by me: 08/15/17 08/15/17 08/15/17 18:50 20:01 20:01 RBC 4.24 L Hgb 9.9 L Hct 31.5 L MCV 74 L MCH 23.3 L MCHC 31.4 L RDW 17.7 H Sodium 132.8 L Chloride 97 L Creatinine 1.27 H Est GFR (Non-Af Amer) 55 L Glucose 186 H Urine Glucose (UA) >=500 H - Diagnostic Test Radiology reviewed: Reports reviewed Discharge - Discharge Clinical Impression: Nausea Fall Qualifiers: Encounter type: initial encounter Qualified Code(s): W19.XXXA - Unspecified fall, initial encounter Low back pain Qualifiers: Chronicity: acute Back pain laterality: bilateral Sciatica presence: without sciatica Qualified Code(s): M54.5 - Low back pain Constipation Qualifiers: Constipation type: unspecified constipation type Qualified Code(s): K59.00 - Constipation, unspecified Condition: Good Disposition: HOME, SELF-CARE Additional Instructions: You were seen today for nausea and abdominal cramping. CT scan of the abdomen pelvis shows that you are severely constipated. For your constipation: You should take 8 caps of MiraLAX and placed in 1 liter of Gatorade. Drink one half of the solution and wait 4 hours. If you do not have a bowel movement take the remaining half of the solution. Take 1-2 capfuls of MiraLAX every day thereafter to ensure that she did not become constipated again The CT scan of your lumbar spine where your having pain is normal and does not show any fractures. The CT scan did show an incidental finding of a small nodule in your lung. This does not mean that you have cancer. However you do need to follow-up with your primary care doctor as they will will likely want to watch this with repeat imaging to ensure that it does not change size. Please return to the emergency department if you have worsening of your pain, vomiting, chest pain, shortness of breath, fever, or any other symptoms that are worrisome to you. Referrals: ARMINDA VARGAS MD [Primary Care Provider] - Follow up in 3-5 days
[2017-08-15 20:10] LABS: APPEARANCE,URINE CLEAR; BILIRUBIN,URINE NEGATIVE (NEGATIVE); GLUCOSE, URINE >=500 mg/dL (NEGATIVE); KETONES,URINE NEGATIVE (NEGATIVE); LEUKOCYTE ESTERASE,URINE NEGATIVE (NEGATIVE); NITRITE,URINE NEGATIVE (NEGATIVE); PROTEIN,URINE NEGATIVE (NEGATIVE); URINE SPECIFIC GRAVITY 1.022; UROBILINOGEN,URINE NEGATIVE mg/dL (<2.0)
[2017-08-15 20:16] LABS: HEMATOCRIT 31.5 % (37.9-51.0); HEMOGLOBIN 9.9 g/dL (13.5-17.0); HGB HCT DIFFERENCE -1.8; MEAN CORPUSCULAR HEMOGLOBIN 23.3 pg (27.0-33.4); MEAN CORPUSCULAR HGB CONC 31.4 g/dL (32.0-36.0); MEAN CORPUSCULAR VOLUME 74 fl (80-97); RED BLOOD COUNT 4.24 10^6/uL (4.35-5.55); RED CELL DISTRIBUTION WIDTH 17.7 % (11.5-14.0); WHITE BLOOD COUNT 8.9 10^3/uL (4.0-10.5)
[2017-08-15 20:32] LABS: BASOPHILS % (MANUAL) 1 % (0-2); EOSINOPHILS % (MANUAL) 0 % (0-6); LYMPHOCYTES % (MANUAL) 13 % (13-45); TOTAL CELLS COUNTED 100
[2017-08-15 20:34] LABS: ANISOCYTOSIS 1+; HYPOCHROMASIA 1+; MICROCYTOSIS 2+; OVALOCYTES SLIGHT; POIKILOCYTOSIS 1+; TARGET CELLS SLIGHT
[2017-08-15 20:38] LABS: ALANINE AMINOTRANSFERASE 32 U/L (21-72); ALKALINE PHOSPHATASE 100 U/L (38-126); ANION GAP 14 (5-19); ASPARTATE AMINO TRANSFERASE 36 U/L (17-59); BILIRUBIN,DIRECT 0.2 mg/dL (0.0-0.4); BILIRUBIN,TOTAL 0.4 mg/dL (0.2-1.3); BLOOD UREA NITROGEN 18 mg/dL (7-20); CALCIUM 10.1 mg/dL (8.4-10.2); CARBON DIOXIDE 22 mmol/L (22-30); CHLORIDE 97 mmol/L (98-107); CREATININE RESULT 1.27 mg/dL (0.52-1.25); GLUCOSE 186 mg/dL (75-110); LIPASE 75.6 U/L (23-300); POTASSIUM 4.7 mmol/L (3.6-5.0); SODIUM 132.8 mmol/L (137-145); TOTAL PROTEIN 7.3 g/dL (6.3-8.2)
--- NOTE | 2017-08-15 21:41 | RADIOLOGY REPORT (SQ) ---
EXAM DESCRIPTION: CT ABD/PELVIS WITH IV ONLY COMPLETED DATE/TIME: 08/15/2017 9:26 pm REASON FOR STUDY: diffuse ab pain, l-spine pain, do recons lspine COMPARISON: None. TECHNIQUE: CT scan of the abdomen and pelvis performed using helical scanning technique with dynamic intravenous contrast injection. No oral contrast. Images reviewed with lung, soft tissue, and bone windows. Reconstructed coronal and sagittal MPR images reviewed. Delayed images for evaluation of the urinary system also acquired. All images stored on PACS. All CT scanners at this facility use dose modulation, iterative reconstruction, and/or weight based d osing when appropriate to reduce radiation dose to as low as reasonably achievable (ALARA). [facility]: Dose Right [facility]: CareDose [facility]: Dose Right [facility]: Teradose 4D [facility]: PublicVine CONTRAST TYPE AND DOSE: contrast/concentration: Isovue 370.00 mg/ml; Total Contrast Delivered: 64.0 ml; Total Saline Delivered: 40.0 ml RENAL FUNCTION: Creatinine 1.27. RADIATION DOSE: CT Rad equipment meets quality standard of care and radiation dose reduction techniq ues were employed. CTDIvol: 5.8 mGy. DLP: 571 mGy-cm.. LIMITATIONS: None. FINDINGS: LOWER CHEST: 4 mm nodule in the left lower lobe, not fully imaged. LIVER: Normal size. No masses. No dilated ducts. SPLEEN: Normal size. No focal lesions. PANCREAS: No masses. No significant calcifications. No adjacent inflammation or peripancreatic fluid collections. Pancreatic duct not dilated. GALLBLADDER: No identified stones by CT criteria. No inflammatory changes to suggest cholecystitis. ADRENAL GLANDS: No significant masses or asymmetry. RIGHT KIDNEY AND URETER: No solid masses. No significant calcifications. No hydronephrosis or hyd roureter. LEFT KIDNEY AND URETER: No solid masses. No significant calcifications. No hydronephrosis or hydr oureter. AORTA AND VESSELS: No aneurysm. No dissection. Renal arteries, SMA, celiac without stenosis. RETROPERITONEUM: No retroperitoneal adenopathy, hemorrhage or masses. BOWEL AND PERITONEAL CAVITY: Large amount of stool throughout the colon and rectum. No masses or inf lammatory changes. No free fluid or peritoneal masses. APPENDIX: Normal. PELVIS: No mass. No free fluid. Normal bladder. ABDOMINAL WALL: No masses. No hernias. BONES: No significant or acute findings. OTHER: No other significant finding. IMPRESSION: 1. LARGE AMOUNT OF STOOL THROUGHOUT THE COLON AND RECTUM CONSISTENT WITH CONSTIPATION. 2. NO OTHER SIGNIFICANT OR ACUTE FINDING IN THE ABDOMEN OR PELVIS ON CT SCAN WITH IV CONTRAST. 3. NO ABNORMAL FINDINGS IN THE LUMBAR SPINE. 4. 4 MM NODULE IN THE LEFT LOWER LOBE. INCOMPLETE EVALUATION OF THE CHEST. MAY CONSIDER FOLLOW-UP A S CLINICALLY INDICATED. COMMENT: [place] CRITERIA FOR FOLLOW-UP OF PULMONARY NODULES Incidentally detected new nodules in persons 35 or older. HIGH RISK: History of smoking or other known risk factors. <6mm single solid nodule: LOW RISK: no routine followup. HIGH RISK: optional CT 12 mo. TECHNICAL DOCUMENTATION: JOB ID: [id number] Quality ID # [id number]: Final reports with documentation of one or more dose reduction techniques (e.g., Au tomated exposure control, adjustment of the mA and/or kV according to patient size, use of iterative reconstruction technique) 2010 [employer]- All Rights Reserved
[2017-08-15] MEDS ORDERED: LACTULOSE SYRUP 20 GM/30 ML UDCUP PO ONE (21:46)
[2017-08-15 21:53] VITALS: BP 133/58
== END 2017-08-15 22:11 | disposition home or self-care (01) ==
LOC: ER 18:28
DX: K59.00 Constipation, unspecified (principal); M54.5 Low back pain; R11.0 Nausea; G89.29 Other chronic pain; W19.XXXA Unspecified fall, initial encounter; F17.200 Nicotine dependence, unspecified, uncomplicated
CPT/HCPCS: 99284; 96360; 36415; 83690; 85025; 80053; 81001; 74177; A9270; J7030

== ENCOUNTER 2017-08-30 20:33 | Emergency (ER) | payer MEDICARE, MEDICAID ==
[2017-08-30] MEDS ORDERED: NORMAL SALINE 1000 ML 1,000 ML IV ONE (21:13)
--- NOTE | 2017-08-30 21:14 | ER Document Report ---
ED General - General Chief Complaint: High Blood Sugar Stated Complaint: BLOOD SUGAR PROBLEMS Time Seen by Provider: 08/30/17 20:39 Notes: Patient is a 76-year-old male with a known history of schizophrenia, currently living in a [facility] who presents with concerns of hyperglycemia. The patient is a very poor historian and similar to my prior assessment of the patient he is unable to provide much significant history regarding why he is here in the emergency department today. He reports that the facility wanted him evaluated because his blood sugars Being so high despite taking his insulin as directed. The patient denies any nausea, vomiting, headache, neck pain, weakness or numbness. He denies anything seems to improve or worsen his blood sugars. He denies any dietary indiscretions. No focal abdominal pain, chest pain or shortness of breath. TRAVEL OUTSIDE OF THE [place] IN LAST 30 DAYS: No - Related Data Allergies/Adverse Reactions: No Known Allergies Allergy (Verified 04/22/17 15:40) Past Medical History - General Information source: Patient - Social History Smoking Status: Current Every Day Smoker Chew tobacco use (# tins/day): No Frequency of alcohol use: None Drug Abuse: None Lives with: Other - long term Family History: Reviewed & Not Pertinent Patient has suicidal ideation: No Patient has homicidal ideation: No - Past Medical History Cardiac Medical History: Reports: Hx Hypertension Endocrine Medical History: Reports: Hx Diabetes Mellitus Type 2 Renal/ Medical History: Denies: Hx Peritoneal Dialysis Psychiatric Medical History: Reports: Hx Schizophrenia Past Surgical History: Reports: Other - eye surgery Review of Systems - Review of Systems Notes: Constitutional: Negative for fever. HENT: Negative for sore throat. Eyes: Negative for visual changes. Cardiovascular: Negative for chest pain. Respiratory: Negative for shortness of breath. Gastrointestinal: Negative for abdominal pain, vomiting or diarrhea. Genitourinary: Negative for dysuria. Musculoskeletal: Negative for back pain. Skin: Negative for rash. Neurological: Negative for headaches, weakness or numbness. 10 point ROS negative except as marked above and in HPI. Physical Exam - Vital signs Vitals: Temp Pulse Resp BP Pulse Ox 97.8 F 100 18 105/79 100 08/30/17 20:33 08/30/17 20:33 08/30/17 20:33 08/30/17 20:33 08/30/17 20:33 Interpretation: Normal Notes: PHYSICAL EXAMINATION: GENERAL: Well-appearing, well-nourished and in no acute distress. HEAD: Atraumatic, normocephalic. EYES: Pupils equal round and reactive to light, extraocular movements intact, sclera anicteric, conjunctiva are normal. ENT: nares patent, oropharynx clear without exudates. Moist mucous membranes. NECK: Normal range of motion, supple without lymphadenopathy LUNGS: Breath sounds clear to auscultation bilaterally and equal. No wheezes rales or rhonchi. HEART: Regular rate and rhythm without murmurs ABDOMEN: Soft, nontender, normoactive bowel sounds. No guarding, no rebound. No masses appreciated. EXTREMITIES: Normal range of motion, no pitting or edema. No cyanosis. NEUROLOGICAL: No focal neurological deficits. Moves all extremities spontaneously and on command. PSYCH: Normal mood, normal affect. SKIN: Warm, Dry, normal turgor, no rashes or lesions noted. Course - Re-evaluation Re-evalutation: 08/30/17 21:14 Presentation of asymptomatic hyperglycemia. There is no evidence of HHS or diabetic ketoacidosis on laboratories or based on clinical history. Patient's vitals are within normal limits. They deny any acute focal complaints. Treatment with insulin and IV fluids given here in the emergency department with appropriate response of the blood sugar. Patient does have primary care follow-up. Patient has been instructed to continue taking his insulin and oral hypoglycemics as directed. Indications to return to emergency department as well as the importance of close outpatient follow-up were discussed at length. Patient verbalized understanding of the need for close follow-up and indications to return to the ED. - Vital Signs Vital signs: Temp Pulse Resp BP Pulse Ox 97.8 F 100 14 100/47 L 99 08/30/17 20:33 08/30/17 20:33 08/31/17 01:00 08/31/17 01:00 08/31/17 01:00 - Laboratory Result Diagrams: 08/30/17 21:55 Laboratory results interpreted by me: 08/30/17 08/30/17 08/30/17 21:55 21:55 23:02 Sodium 128.7 L Chloride 94 L Carbon Dioxide 20 L BUN 22 H Glucose 509 H* POC Glucose 443 H* Urine Glucose (UA) >=500 H Urine Nitrite POSITIVE H Ur Leukocyte Esterase TRACE H Discharge - Discharge Clinical Impression: Hyperglycemia Hypertension Qualifiers: Hypertension type: essential hypertension Qualified Code(s): I10 - Essential ( primary) hypertension Condition: Good Disposition: HOME, SELF-CARE Additional Instructions: You need to followup urgently with your primary care doctor as your blood sugars were dangerously high today. You did not have any evidence of a dangerous condition associated with these blood sugars at this time. However, it is very important that you get your blood sugars under control. Please take all of your medications exactly as directed. You should avoid foods that are high in carbohydrates and sugary foods. Please return to emergency department immediately if you develop weakness, persistent vomiting, confusion, or any other symptoms that are concerning to you. Referrals: ARMINDA VARGAS MD [Primary Care Provider] - Follow up as needed
[2017-08-30 22:17] LABS: APPEARANCE,URINE CLEAR; BILIRUBIN,URINE NEGATIVE (NEGATIVE); COLOR,URINE STRAW; GLUCOSE, URINE >=500 mg/dL (NEGATIVE); KETONES,URINE NEGATIVE (NEGATIVE); LEUKOCYTE ESTERASE,URINE TRACE (NEGATIVE); NITRITE,URINE POSITIVE (NEGATIVE); PROTEIN,URINE NEGATIVE (NEGATIVE); URINE SPECIFIC GRAVITY 1.027; UROBILINOGEN,URINE NEGATIVE mg/dL (<2.0)
[2017-08-30 22:20] LABS: VENOUS BLOOD BASE EXCESS -3.9 mmol/L; VENOUS BLOOD HCO3 21.3 mmol/L (20-32); VENOUS BLOOD PCO2 39.4 mmHg (35-63); VENOUS BLOOD PH 7.35 (7.30-7.42)
[2017-08-30 22:36] LABS: ANION GAP 15 (5-19); BLOOD UREA NITROGEN 22 mg/dL (7-20); CALCIUM 10.2 mg/dL (8.4-10.2); CARBON DIOXIDE 20 mmol/L (22-30); CHLORIDE 94 mmol/L (98-107); SODIUM 128.7 mmol/L (137-145)
[2017-08-30 22:47] LABS: GLUCOSE 509 mg/dL (75-110)
[2017-08-30] MEDS ORDERED: INSULIN REG, HUMAN 100 UNIT/ML 3 ML VIAL (PYX) IV ONE (23:04)
[2017-08-31 05:18] VITALS: BP 99/50
== END 2017-08-31 05:44 | disposition home or self-care (01) ==
LOC: ER 20:33
DX: E11.65 Type 2 diabetes mellitus with hyperglycemia (principal); Z79.4 Long term (current) use of insulin; Z79.84 Long term (current) use of oral hypoglycemic drugs; I10 Essential (primary) hypertension; F20.9 Schizophrenia, unspecified; F17.200 Nicotine dependence, unspecified, uncomplicated
CPT/HCPCS: 99285; 96360; 36415; 82962; 80048; 81001; 82803; A9270; J7030; J1815

== ENCOUNTER 2017-09-02 09:10 | Emergency (ER) | payer MEDICARE, MEDICAID ==
[2017-09-02 09:38] LABS: ABSOLUTE LYMPHOCYTES (AUTO) 0.9 10^3/uL (0.5-4.7); ABSOLUTE MONOCYTES (AUTO) 0.7 10^3/uL (0.1-1.4); ABSOLUTE NEUT (AUTO) 5.6 10^3/uL (1.7-8.2); BASOPHILS % (AUTO) 0.3 % (0-2); HEMATOCRIT 18.6 % (37.9-51.0); LYMPHOCYTES % (AUTO) 11.9 % (13-45); MEAN CORPUSCULAR HEMOGLOBIN 22.9 pg (27.0-33.4); MEAN CORPUSCULAR HGB CONC 30.3 g/dL (32.0-36.0); MEAN CORPUSCULAR VOLUME 75 fl (80-97); MONOCYTES % (AUTO) 10.1 % (3-13); PLATELET COUNT 156 10^3/uL (150-450); RED BLOOD COUNT 2.47 10^6/uL (4.35-5.55); RED CELL DISTRIBUTION WIDTH 19.1 % (11.5-14.0); SEGMENTED NEUTROPHILS % (AUTO) 77.7 % (42-78); TOTAL CELLS COUNTED % (AUTO) 100 %; WHITE BLOOD COUNT 7.3 10^3/uL (4.0-10.5)
[2017-09-02] MEDS ORDERED: NORMAL SALINE 1000 ML 1,000 ML IV PRN (09:42)
--- NOTE | 2017-09-02 09:44 | ER Document Report ---
ED General - General Stated Complaint: ALTERED MENTAL STATUS Time Seen by Provider: 09/02/17 09:14 Mode of Arrival: Medic Information source: Patient, Emergency Med Personnel Notes: 76-year-old male presents with complaints of weakness. Patient notes for the past 3 days he has not been feeling well. He denies any pain anywhere. He denies any chest pain shortness breath difficulty breathing. Patient is alert oriented,date where he is located in his full name. Patient is noted to be bradycardic and hypotensive upon arrival TRAVEL OUTSIDE OF THE [place] IN LAST 30 DAYS: No - HPI Onset: Other - 3-4 day duration Onset/Duration: Persistent Quality of pain: No pain Severity: Moderate Pain Level: Denies Associated symptoms: Weakness Exacerbated by: Denies Relieved by: Denies Similar symptoms previously: Yes Recently seen / treated by doctor: Yes - Related Data Allergies/Adverse Reactions: No Known Allergies Allergy (Verified 09/02/17 10:24) Past Medical History - Social History Smoking Status: Never Smoker Cigarette use (# per day): No Chew tobacco use (# tins/day): No Smoking Education Provided: No Family History: Reviewed & Not Pertinent - Past Medical History Cardiac Medical History: Reports: Hx Hypertension Endocrine Medical History: Reports: Hx Diabetes Mellitus Type 2 Renal/ Medical History: Denies: Hx Peritoneal Dialysis Psychiatric Medical History: Reports: Hx Schizophrenia Past Surgical History: Reports: Other - eye surgery Review of Systems - Review of Systems Notes: REVIEW OF SYSTEMS: CONSTITUTIONAL : Denies fever, chills, or sweats. Denies recent illness. EENT: Denies eye, ear, throat, or mouth pain or symptoms. Denies nasal or sinus congestion or discharge. Denies throat, tongue, or mouth swelling or difficulty swallowing. CARDIOVASCULAR: Denies chest pain. Denies palpitations or racing or irregular heart beat. Denies ankle edema. RESPIRATORY: Denies cough, cold, or chest congestion. Denies shortness of breath, difficulty breathing, or wheezing. GASTROINTESTINAL: Denies abdominal pain or distention. Denies nausea, vomiting , or diarrhea. Denies blood in vomitus, stools, or per rectum. Denies black, tarry stools. Denies constipation. GENITOURINARY: Denies difficulty urinating, painful urination, burning, frequency, blood in urine, or discharge. MUSCULOSKELETAL: Denies back or neck pain or stiffness. Denies joint pain or swelling. SKIN: Denies rash, lesions or sores. HEMATOLOGIC : Denies easy bruising or bleeding. LYMPHATIC: Denies swollen, enlarged glands. NEUROLOGICAL: Admits to weakness PSYCHIATRIC: Denies anxiety or stress. Denies depression, suicidal ideation, or homicidal ideation. ALL OTHER SYSTEMS REVIEWED AND NEGATIVE. Dictation was performed using [employer] voice recognition software PHYSICAL EXAMINATION: GENERAL: Well-appearing, well-nourished and in no acute distress. Hypotensive HEAD: Atraumatic, normocephalic. EYES: Pupils equal round and reactive to light, extraocular movements intact, sclera anicteric, conjunctiva are normal. ENT: Nares patent, oropharynx clear without exudates. Moist mucous membranes. NECK: Normal range of motion, supple without lymphadenopathy LUNGS: Breath sounds clear to auscultation bilaterally and equal. No wheezes rales or rhonchi. HEART: Bradycardic in the 40s ABDOMEN: Soft, nontender, nondistended abdomen. No guarding, no rebound. No masses appreciated. Musculoskeletal: Normal range of motion, no pitting or edema. No cyanosis. NEUROLOGICAL: Cranial nerves grossly intact. Normal speech, normal gait. Normal sensory, motor exams PSYCH: Normal mood, normal affect. SKIN: Warm, Dry, normal turgor, no rashes or lesions noted. Physical Exam - Vital signs Vitals: Resp BP Pulse Ox 18 61/38 L 100 09/02/17 09:23 09/02/17 09:23 09/02/17 09:23 Course - Re-evaluation Re-evalutation: 09/02/17 09:44 Patient is noted to be hypoglycemic hypotensive and bradycardic. IV fluid boluses have been ordered immediately, lab work pending previous heart rates have been noted to be in the 90s on previous presentations to the emergency department 09/02/17 10:35 Hemoccult is positive, hgb is 5, transufsion orders given, protonix ordered, [facility] paged 09/02/17 11:01 [facility] Dr Ricketts states they have no icu beds 09/02/17 11:10 [place] paged 09/02/17 11:25 Patient accepted by weapons engineer Dr. Borrego 09/02/17 11:45 Patient is now noted to be hypothermic, inital temp was 97.1, bare hugger placed - Vital Signs Vital signs: Temp Pulse Resp BP Pulse Ox 89.2 F L 10 L 76/53 L 100 09/02/17 11:33 09/02/17 11:41 09/02/17 11:41 09/02/17 11:41 - Laboratory Result Diagrams: 09/02/17 09:25 09/02/17 09:25 Laboratory results interpreted by me: 09/02/17 09/02/17 09/02/17 09:25 09:25 10:11 RBC 2.47 L Hgb 5.6 L Hct 18.6 L MCV 75 L MCH 22.9 L MCHC 30.3 L RDW 19.1 H Lymphocytes % 11.9 L Sodium 129.6 L Carbon Dioxide 21 L BUN 22 H Creatinine 1.26 H Est GFR (Non-Af Amer) 56 L Glucose 368 H AST 74 H ALT 82 H Total Protein 4.7 L Albumin 2.4 L Urine Glucose (UA) Urine Blood Ur Leukocyte Esterase Urine Ascorbic Acid Crossmatch See Detail 09/02/17 10:11 RBC Hgb Hct MCV MCH MCHC RDW Lymphocytes % Sodium Carbon Dioxide BUN Creatinine Est GFR (Non-Af Amer) Glucose AST ALT Total Protein Albumin Urine Glucose (UA) >=500 H Urine Blood SMALL H Ur Leukocyte Esterase LARGE H Urine Ascorbic Acid 20 H Crossmatch Discharge - Discharge Referrals: ARMINDA VARGAS MD [Primary Care Provider] - Follow up as needed
--- NOTE | 2017-09-02 09:44 | RADIOLOGY REPORT (SQ) ---
EXAM DESCRIPTION: CHEST SINGLE VIEW COMPLETED DATE/TIME: 09/02/2017 9:35 am REASON FOR STUDY: altered COMPARISON: 07/14/2017 EXAM PARAMETERS: NUMBER OF VIEWS: One view. TECHNIQUE: Single frontal radiographic view of the chest acquired. RADIATION DOSE: NA LIMITATIONS: None. FINDINGS: LUNGS AND PLEURA: No opacities, masses or pneumothorax. No pleural effusion. MEDIASTINUM AND HILAR STRUCTURES: No masses. Contour normal. HEART AND VASCULAR STRUCTURES: Heart normal in size. Normal vasculature. BONES: No acute findings. HARDWARE: None in the chest. OTHER: No other significant finding. IMPRESSION: NO ACUTE RADIOGRAPHIC FINDING IN THE CHEST. TECHNICAL DOCUMENTATION: JOB ID: [id number] [email or web address]- All Rights Reserved
[2017-09-02 09:49] LABS: HEMOGLOBIN 5.6 g/dL (13.5-17.0)
[2017-09-02] MEDS ORDERED: NORMAL SALINE 250 ML IV PRN ×4 (09:52→11:18)
[2017-09-02 09:53] LABS: VENOUS BLOOD BASE EXCESS -4.3 mmol/L; VENOUS BLOOD HCO3 20.8 mmol/L (20-32); VENOUS BLOOD PCO2 38.1 mmHg (35-63); VENOUS BLOOD PH 7.36 (7.30-7.42)
[2017-09-02 09:54] LABS: INTERNATIONAL RATION (INR) 1.05; PROTHROMBIN TIME 14.4 SEC (11.4-15.4)
[2017-09-02 09:56] LABS: ALANINE AMINOTRANSFERASE 82 U/L (21-72); ALBUMIN 2.4 g/dL (3.5-5.0); ALKALINE PHOSPHATASE 70 U/L (38-126); ANION GAP 6 (5-19); ASPARTATE AMINO TRANSFERASE 74 U/L (17-59); BILIRUBIN,DIRECT 0.2 mg/dL (0.0-0.4); BILIRUBIN,TOTAL 0.3 mg/dL (0.2-1.3); BLOOD UREA NITROGEN 22 mg/dL (7-20); CALCIUM 8.6 mg/dL (8.4-10.2); CARBON DIOXIDE 21 mmol/L (22-30); CHLORIDE 103 mmol/L (98-107); GLUCOSE 368 mg/dL (75-110); SODIUM 129.6 mmol/L (137-145); TOTAL PROTEIN 4.7 g/dL (6.3-8.2)
[2017-09-02] MEDS ORDERED: PANTOPRAZOLE SODIUM 40 MG VIAL IV ONE (10:34)
[2017-09-02] MEDS ORDERED: PANTOPRAZOLE SODIUM 40 MG VIAL IV PRN (10:40)
[2017-09-02 10:42] LABS: APPEARANCE,URINE CLOUDY; BILIRUBIN,URINE NEGATIVE (NEGATIVE); COLOR,URINE YELLOW; GLUCOSE, URINE >=500 mg/dL (NEGATIVE); KETONES,URINE NEGATIVE (NEGATIVE); LEUKOCYTE ESTERASE,URINE LARGE (NEGATIVE); NITRITE,URINE NEGATIVE (NEGATIVE); PROTEIN,URINE NEGATIVE (NEGATIVE); URINE SPECIFIC GRAVITY 1.023; UROBILINOGEN,URINE NEGATIVE mg/dL (<2.0)
[2017-09-02 12:03] VITALS: BP 94/46
--- NOTE | 2017-09-02 12:08 | EKG REPORT ---
SEVERITY:- ABNORMAL ECG - SINUS BRADYCARDIA PROBABLE LEFT VENTRICULAR HYPERTROPHY ABNORMAL T, PROBABLE ISCHEMIA, WIDESPREAD ST ELEVATION SUGGESTS PERICARDITIS : Confirmed by: Awa Thomas MD 02-Sep-2017 12:08:07
== END 2017-09-02 12:22 | disposition short-term general hospital (02) ==
LOC: ER 09:10
DX: K92.2 Gastrointestinal hemorrhage, unspecified (principal); D64.9 Anemia, unspecified; I95.9 Hypotension, unspecified; T68.XXXA Hypothermia, initial encounter; X58.XXXA Exposure to other specified factors, initial encounter; R00.1 Bradycardia, unspecified; I10 Essential (primary) hypertension; E11.649 Type 2 diabetes mellitus with hypoglycemia without coma
CPT/HCPCS: 93005; 99291; 99292; 96361; 51701; 96365; 86900; 86901; 36415; 87040; 87086; 36430; 86850; 82962; 85025; 85610; 82272; 87077; 87088; 80053; 81001; 87186; 86920; 82803; 83605; 71010; 93010; P9016; C9113; J7030; S0164